=== PATIENT | female | born 1945 | race Caucasian/White ===

== ENCOUNTER 2019-05-05 19:34 | Emergency (ER) | payer OTHER ==
--- OUTSIDE RECORDS SUMMARY | 2019-05-05 19:38 | XMS REPORT | Continuity of Care Document ---
:1945 Author Organization [facility] Care Team Providers Name Role Phone [facility] Unavailable Unavailable Problems Problem Status Onset Classification Date Comments Source Date Reported Discharge 05/14/20 05/16/2018 [facility] Diagnosis: 18 Personal history of colonic polyps Nausea with 05/06/20 11/18/2018 [facility] vomiting, 18 [place] unspecified Asthma Active Problem 05/16/2018 [facility] Cholesterol Active Problem 05/16/2018 [facility] Diabetes Active Problem 05/16/2018 TYPE II [facility] mellitus1 Insulin dependent Heart murmur2 Active Problem 05/16/2018 no problems [facility] Hypertension Active Problem 05/16/2018 [facility] Hypothyroid Active Problem 05/16/2018 [facility] Polyp colon Resolved Problem 05/16/2018 [facility] Medications Medication Details Route Status Patient Ordering Order Source Instructions Provider Date Optiray 300 100 mL, Inactive [facility] Injection, IV 018 Push, Once, first dose 05/14/18 12:00:00 CDT, stop date 05/14/18 12:00:00 CDT barium sulfate 450 mL, Susp, Inactive [facility] 2% oral Oral, Once, 018 suspension first dose 05/14/18 12:00:00 CDT, stop date 05/14/18 12:00:00 CDT Saline Lock 10 mL, Soln, Inactive [facility] Flush IV Push, As 018 Indicated PRN for flush, first dose 05/14/18 11:34:00 CDT LR 1,000 mL 1,000 mL, IV, Inactive [facility] 75 mL/hr, 018 start date 05/14/18 9:50:00 CDT Saline Lock 10 mL, Soln, Inactive [facility] Flush IV Push, As 018 Indicated PRN for flush, first dose 05/14/18 9:50:00 CDT Misc Medication 500 mL, Inactive [facility] Soln-IV, IV, 018 Once, first dose 05/14/18 9:46:00 CDT, stop date 05/14/18 9:46:00 CDT propofol 100 mg=10 mL, Inactive [facility] Emulsion, IV, 018 Once, first dose 05/14/18 9:39:00 CDT, stop date 05/14/18 9:39:00 CDT propofol 200 mg=20 mL, Inactive [facility] Emulsion, IV, 018 Once, first dose 05/14/18 9:24:00 CDT, stop date 05/14/18 9:24:00 CDT Lidocaine 2% 0.2 mL, Inactive [facility] 0.2 mL IV Start Injection, 018 [[place]] Subcutaneous, Once PRN for other (see comment), first dose 05/14/18 7:35:00 CDT LR 1,000 mL 1,000 mL, IV, Inactive [facility] 30 mL/hr, 018 start date 05/14/18 7:35:00 CDT Albuterol 0.83 mg mL, NEB, Active [facility] MG/ML Inhalant q6hr, 0 018 Solution Refill(s) Levothyroxine 100 mcg=1 Active [facility] Sodium 0.1 MG tabs, Oral, 018 Oral Tablet Daily, 0 [Levothroid] Refill(s), thyroid losartan 100 mg mg tabs, Oral, Active [facility] oral tablet Daily, 0 018 Refill(s), HTN Humulin N See Active [facility] Instructions, 018 Subcutaneous 10 units in AM, 0 Refill(s), DM Insulin Lispro Subcutaneous, Active [facility] 100 UNT/ML 0 Refill(s), 018 Injectable DM Solution [Humalog] atorvastatin 40 40 mg=1 tabs, Active [facility] mg oral tablet Oral, Daily, 0 018 Refill(s), cholesterol aspirin 81 mg =1 caps, Oral, Active [facility] oral delayed Daily, # 120 018 release capsule caps, 0 Refill(s), supplement carvedilol 25 25 mg=1 tabs, Active [facility] MG Oral Tablet Oral, BID, 0 018 Refill(s), HTN amLODIPine 5 mg mg tabs, Oral, Active [facility] oral tablet Daily, 0 018 Refill(s), HTN Allergies, Adverse Reactions, Alerts No Known Medication Allergies Immunizations No Data Provided for This Section Results Order Name Results Value Reference Date Interpretation Comments Source Range LABORATORY Calculate 106 59 - 120 05/14/ [facility] GFR 2018 LABORATORY Blood 177 74 - 106 05/14/ [facility] Glucose, 2018 Capillary LABORATORY Blood 246 74 - 106 05/14/ [facility] Glucose, 2018 Capillary Pathology Reports No Data Provided for This Section Diagnostic Reports Report Value Date Source Gallbladder scan HIDA w HIDA scan with gallbladder ejection fraction, 201705/01/2018 [place] [facility] [place] HISTORY: Nausea and vomiting. TECHNIQUE: HIDA scan was performed following the intravenous injection of 5.5 mCi of technetium labeled Choletec. Gallbladder ejection fraction was calculated following the intravenous injection of 1.0 cc of Kinevac. FINDINGS: The images of the liver demonstrate no abnormality with prompt emptying into gallbladder, bile ducts, and small bowel. The gallbladder ejection fraction equals 70% with no reproduction of the patient's abdominal pain. IMPRESSION: Normal HIDA scan. Normal gallbladder ejection fraction with no reproduction of the patient's abdominal pain. Consultation Notes No Data Provided for This Section Discharge Summaries No Data Provided for This Section History and Physicals No Data Provided for This Section Vital Signs Vital Sign Value Date Comments Source Systolic (mm Hg) 130 05/14/2018 [facility] Diastolic (mm Hg) 78 05/14/2018 [facility] Respitory Rate 13 05/14/2018 [facility] Peripheral Pulse Rate 64 05/14/2018 [facility] Heart Rate 62 05/14/2018 [facility] Systolic (mm Hg) 144 05/14/2018 [facility] Diastolic (mm Hg) 73 05/14/2018 [facility] Respitory Rate 12 05/14/2018 [facility] Respitory Rate 13 05/14/2018 [facility] Heart Rate 67 05/14/2018 [facility] Systolic (mm Hg) 146 05/14/2018 [facility] Diastolic (mm Hg) 76 05/14/2018 [facility] Temperature Oral (F) 36.8 [place] 05/14/2018 [facility] Heart Rate 77 05/14/2018 [facility] Height 157.48 cm 05/14/2018 [facility] Peripheral Pulse Rate 61 05/14/2018 [facility] Temperature Oral (F) 36.5 [place] 05/14/2018 [facility] Weight Measured 49 05/14/2018 [facility] Weight Measured 48.98 05/11/2018 [facility] Height 157.48 cm 05/11/2018 [facility] Encounters Location Location Encounter Encounter Reason Attending ADM DC Status Source Details Type Number For Provider Date Date Visit [facility] Outpatient [id number] Francisco J 05/01 05/02 Yudi Wharotn /2017 [facility] Outpatient [id number] Kumarlis 05/14 05/14 Active [facility] /2017 [facility] Outpatient [id number] Kumarlis 05/14 05/14 [facility]nyman [place] Procedures Procedure Code Date Perfomer Comments Source COLONOSCOPY 05/14/2018 auto-populated [facility] FLEXIBLE; WITH from documented BIOPSY; SINGLE OR surgical case MULTIPLE 21424 (Other)<sup>1</sup> Colonoscopy [id number] 08/28/2014 [facility] colon 08/28/2005 due to [facility] resection<sup>2</choi pre-cancer polyp p> ankle surgery [facility] Hernia repair [id number] [facility] Tonsillectomy [id number] [facility] Tubal ligation [id number] [facility] Assessment and Plan No Data Provided for This Section Plan of Care No Data Provided for This Section Social History Social History Date Source Social History TypeResponse 05/11/2018 [facility] Smoking Status Current every day smoker; Type: Cigarettes; Tobacco use per day: 20; No data available for this 05/02/2018 [facility] section Family History No Data Provided for This Section Advance Directives No Data Provided for This Section Functional Status No Data Provided for This Section
--- OUTSIDE RECORDS SUMMARY | 2019-05-05 19:38 | XMS REPORT | Clinical Summary ---
:1945 Author Organization [facility] Address [address] [place] [address] Care Team Providers Name Role Phone Marcos Cage MD Primary Care Provider Allergies No Known Allergies Medications Medication Sig Dispensed Refills Start End Date Status Date albuterol (PROAIR Inhale 2 puffs 0 Active HFA,PROVENTIL every 6 (six) HFA,VENTOLIN HFA) hours as needed 90 mcg/actuation for wheezing. inhaler brimonidine Administer 1 0 Active (ALPHAGAN P) 0.1 % drop to both drops eyes 2 (two) times a day. amLODIPine Take 5 mg by 0 Active (NORVASC) 5 mg mouth daily. tablet aspirin (ECOTRIN) Take 81 mg by 0 Active 81 MG enteric mouth daily. coated tablet atorvastatin Take 40 mg by 0 Active (LIPITOR) 40 MG mouth daily. tablet carvedilol (COREG) Take 25 mg by 0 Active 25 MG tablet mouth 2 (two) times a day with meals. folic Take by mouth. 0 Active acid/multivit-min/ lutein (CENTRUM SILVER ORAL) yjdfbo-tgrvoadn-zs Take 1 capsule 0 Active ylase (CREON) by mouth 3 36,000-114,000- (three) times a 180,000 unit day with meals. capsule,delayed release(DR/EC) levothyroxine Take 100 mcg by 0 Active (SYNTHROID, mouth daily. LEVOXYL) 100 mcg tablet guaiFENesin Take 1,200 mg 0 Active (MUCINEX) 600 mg by mouth as tablet extended needed. release 12hr travoprost 1 drop nightly. 0 Active (TRAVATAN-Z) 0.004 % cholecalciferol, Take 1 tablet 0 Active vitamin D3, by mouth. (VITAMIN D3) 5,000 unit tablet insulin lispro Inject 0-5 10 mL 1 08/19/201 08/18/20 Active (HumaLOG) 100 Units under the 9 20 unit/mL injection skin 3 (three) times a day with meals. erythromycin base Take 1 tablet 120 tablet 0 05/15/20 Active (E-MYCIN) 250 MG (250 mg total) 9 19 tablet by mouth 4 (four) times a day with meals and nightly for 30 days. insulin GLARGINE Inject 15 Units 10 mL 1 04/15/20 Active (LANTUS) 100 under the skin 9 20 unit/mL injection daily before (vial) breakfast. multivitamin Take 1 tablet 30 tablet 0 Active (THERAGRAN) tablet by mouth daily. 9 insulin NPH Inject 24 Units 0 04/15/20 Discontinued (HumuLIN-N) 100 under the skin 19 (Stop Taking at unit/mL injection daily before Discharge) breakfast. insulin lispro Inject 3-14 0 04/15/20 Discontinued (HumaLOG) 100 Units under the 19 (Stop Taking at unit/mL injection skin 3 (three) Discharge) times a day before meals. loperamide Take 2 mg by 0 04/15/20 Discontinued (IMODIUM) 2 mg mouth as needed 19 (Stop Taking at capsule for diarrhea. Discharge) losartan (COZAAR) Take 100 mg by 0 04/15/20 Discontinued 100 MG tablet mouth daily. 19 (Stop Taking at Discharge) HYDROcodone-acetam Take 1 tablet 0 04/15/20 Discontinued inophen (NORCO) by mouth every 19 (Stop Taking at 10-325 mg per 8 (eight) hours Discharge) tablet as needed for moderate pain. gabapentin Take 1 capsule 42 capsule 0 04/29/20 (NEURONTIN) 300 mg (300 mg total) 9 19 capsule by mouth 3 (three) times a day for 14 days. methocarbamol Take 1 tablet 30 tablet 0 04/29/20 (ROBAXIN) 500 MG (500 mg total) 9 19 tablet by mouth 3 (three) times a day as needed for muscle spasms for up to 14 days. traMADol (ULTRAM) Take 1 tablet 30 tablet 0 04/29/20 50 mg tablet (50 mg total) 9 by mouth every 6 (six) hours for 14 days. 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 Overview: Added automatically from request for surgery [id number] Encounters Date Type Specialty Care Team Description 04/16/2019 Patient Outreach Quality Billy Dodge 04/02/2019 Surgery General Surgery Abbe NevilleIPPJUAN F PROCEDURE WITH MD Franca CHOLECYSTECTOMY 04/02/2019 Anesthesia Event General Surgery Abner Malin MD Crawley, Teri, NP 04/01/2019 Surgery Gastroenterology Elizabeth Hastings, UPPER GI TRACT, ENDOSCOPIC with biopsies/FNA 04/01/2019 Anesthesia Event Gastroenterology Mariel Anguiano MD Dhother, Ronaldo Thaukr MD 03/29/2019 [facility] [place], Diabetes mellitus of other type with complication, unspecified whether [facility] insulin use (HCC) ( Primary Dx); - Encounter Transaminitis; 04/15/2019 Dane Roy RUQ pain; MD Essence Hyponatremia; Urvashi Ambriz, Alcohol-induced chronic pancreatitis (HCC); Pancreatic mass; Essence Seaman Essential hypertension; MD Dane Type 2 diabetes mellitus with complication, with long-term current use of insulin (HCC) Abbe Neville MD after 05/04/2018 Family History Medical History Relation Name Comments Diabetes Father Heart disease Father Breast cancer Mother Heart disease Mother Relation Name Status Comments Father Mother Social History Tobacco Use Types Packs/Day Years Used Date Current Every Day Smoker 1 58 Smokeless Tobacco: Never Used Alcohol Use Drinks/Week oz/Week Comments Not Currently Alcohol Habits Answer Date Recorded How often do you have a drink containing alcohol? Not asked How many drinks containing alcohol do you have on a typical 3 or 4 03/30/2019 day when you are drinking? How often do you have six or more drinks on one occasion? Not asked Sex Assigned at Date Recorded Not on file Job Start Date Occupation Industry Not on file Not on file Not on file Travel History Travel Start Travel End No recent travel history available. Last Filed Vital Signs Vital Sign Reading Time Taken Comments Blood Pressure 142/71 04/15/2019 8:05 AM CDT Pulse 90 04/15/2019 9:16 AM CDT Temperature 36 C (96.8 F) 04/15/2019 8:05 AM CDT Respiratory Rate 17 04/15/2019 9:16 AM CDT Oxygen Saturation 93% 04/15/2019 9:10 AM CDT Inhaled Oxygen Concentration - - Weight 48.6 kg (107 lb 2.3 oz) 03/29/2019 4:35 PM CDT Height 160 cm (5' 3") 03/29/2019 10:18 AM CDT Body Mass Index 18.98 03/29/2019 10:18 AM CDT Plan of Treatment Date Type Specialty Care Team Description 05/13/2019 Office Visit General Surgery Abbe Neville MD [address] [address] Health Maintenance Due Date Last Done Comments DIABETIC RETINAL EYE EXAM 1945 DIABETIC FOOT EXAM 1957 URINE MICROALBUMIN 1957 BREAST CANCER SCREENING 1997 COLONOSCOPY SCREENING 1997 SHINGLES VACCINES (#1) 1997 65+ PNEUMOCOCCAL VACCINE (1 of 2 - PCV13) 2012 INFLUENZA VACCINE 03/28/2019 Implants Implanted Type Area 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 Device Shelf Model / Identifier Expiration Serial / Date Lot Clip Ligtng Weck Hemoclip Plus W/ Tape Ti Med - [id number] Medical N/A: N/A TELE[employer]LEX [employer] 11/20/2023 [id number] / Implanted: Qty: 1 on 04/02/2019 by Abbe Neville MD at [facility] Clips for / Internal Use Clip Ligtng Weck Hemoclip Plus W/ Tape Ti Lg - [id number] Medical N/A: N/A TELEFLEX MEDICAL 04/17/2023 [id number] / Implanted: Qty: 1 on 04/02/2019 by Abbe Neville MD at [facility] Clips for / Internal Use Clip Ligtng Weck Hemoclip Plus W/ Tape Ti Med Lg - [id number] Medical N/A: N/ A WECK CLOSURE 11/13/2023 [id number] / Implanted: Qty: 1 on 04/02/2019 by Abbe Neville MD at [facility] for SYSTEMS / Internal Use Procedures Procedure Name Priority Date/Time Associated Comments Diagnosis POC GLUCOSE Routine 04/15/2019 8:02 Results for this AM CDT procedure are in the results section. HC COMPLETE BLD COUNT Routine 04/15/2019 5:50 Results for this W/AUTO DIFF AM CDT procedure are in the results section. ESTIMATED GFR Routine 04/15/2019 4:00 Results for this AM CDT procedure are in the results section. PHOSPHORUS LEVEL Routine 04/15/2019 4:00 Results for this AM CDT procedure are in the results section. MAGNESIUM LEVEL Routine 04/15/2019 4:00 Results for this AM CDT procedure are in the results section. ALBUMIN LEVEL Routine 04/15/2019 4:00 Results for this AM CDT procedure are in the results section. PREALBUMIN LEVEL Routine 04/15/2019 4:00 Results for this AM CDT procedure are in the results section. BASIC METABOLIC PANEL Routine 04/15/2019 4:00 Results for this AM CDT procedure are in the results section. POC GLUCOSE Routine 04/14/2019 10:09 Results for this PM CDT procedure are in the results section. POC GLUCOSE Routine 04/14/2019 5:54 Results for this PM CDT procedure are in the results section. POC GLUCOSE Routine 04/14/2019 12:59 Results for this PM CDT procedure are in the results section. POC GLUCOSE Routine 04/14/2019 9:59 Results for this AM CDT procedure are in the results section. POC GLUCOSE Routine 04/14/2019 7:31 Results for this AM CDT procedure are in the results section. ESTIMATED GFR Routine 04/14/2019 4:00 Results for this AM CDT procedure are in the results section. PHOSPHORUS LEVEL Routine 04/14/2019 4:00 Results for this AM CDT procedure are in the results section. MAGNESIUM LEVEL Routine 04/14/2019 4:00 Results for this AM CDT procedure are in the results section. BASIC METABOLIC PANEL Routine 04/14/2019 4:00 Results for this AM CDT procedure are in the results section. HC COMPLETE BLD COUNT Routine 04/14/2019 3:30 Results for this W/AUTO DIFF AM CDT procedure are in the results section. POC GLUCOSE Routine 04/13/2019 4:15 Results for this PM CDT procedure are in the results section. POC GLUCOSE Routine 04/13/2019 12:26 Results for this PM CDT procedure are in the results section. CT CHEST W CONTRAST STAT 04/13/2019 12:08 Results for this PM CDT procedure are in the results section. POC GLUCOSE Routine 04/13/2019 7:39 Results for this AM CDT procedure are in the results section. ESTIMATED GFR Routine 04/13/2019 4:22 Results for this AM CDT procedure are in the results section. PHOSPHORUS LEVEL Routine 04/13/2019 4:22 Results for this AM CDT procedure are in the results section. MAGNESIUM LEVEL Routine 04/13/2019 4:22 Results for this AM CDT procedure are in the results section. BASIC METABOLIC PANEL Routine 04/13/2019 4:22 Results for this AM CDT procedure are in the results section. HC COMPLETE BLD COUNT Routine 04/13/2019 4:22 Results for this W/AUTO DIFF AM CDT procedure are in the results section. POC GLUCOSE Routine 04/12/2019 8:13 Results for this PM CDT procedure are in the results section. POC GLUCOSE Routine 04/12/2019 4:56 Results for this PM CDT procedure are in the results section. POC GLUCOSE Routine 04/12/2019 11:57 Results for this AM CDT procedure are in the results section. ESTIMATED GFR Routine 04/12/2019 9:48 Results for this AM CDT procedure are in the results section. BASIC METABOLIC PANEL Routine 04/12/2019 9:48 Results for this AM CDT procedure are in the results section. OSMOLALITY, SERUM Routine 04/12/2019 9:37 Results for this AM CDT procedure are in the results section. OSMOLALITY, URINE Routine 04/12/2019 9:37 Results for this AM CDT procedure are in the results section. SODIUM LEVEL, URINE, Routine 04/12/2019 9:37 Results for this RANDOM AM CDT procedure are in the results section. CREATININE LEVEL, URINE, Routine 04/12/2019 9:37 Results for this RANDOM AM CDT procedure are in the results section. POC GLUCOSE Routine 04/12/2019 6:31 Results for this AM CDT procedure are in the results section. ESTIMATED GFR Routine 04/12/2019 4:42 Results for this AM CDT procedure are in the results section. PHOSPHORUS LEVEL Routine 04/12/2019 4:42 Results for this AM CDT procedure are in the results section. MAGNESIUM LEVEL Routine 04/12/2019 4:42 Results for this AM CDT procedure are in the results section. BASIC METABOLIC PANEL Routine 04/12/2019 4:42 Results for this AM CDT procedure are in the results section. HC COMPLETE BLD COUNT Routine 04/12/2019 4:42 Results for this W/AUTO DIFF AM CDT procedure are in the results section. POC GLUCOSE Routine 04/11/2019 4:51 Results for this PM CDT procedure are in the results section. POC GLUCOSE Routine 04/11/2019 11:32 Results for this AM CDT procedure are in the results section. POC GLUCOSE Routine 04/11/2019 7:48 Results for this AM CDT procedure are in the results section. ESTIMATED GFR STAT 04/11/2019 5:45 Results for this AM CDT procedure are in the results section. PHOSPHORUS LEVEL STAT 04/11/2019 5:45 Results for this AM CDT procedure are in the results section. MAGNESIUM LEVEL STAT 04/11/2019 5:45 Results for this AM CDT procedure are in the results section. HC COMPLETE BLD COUNT STAT 04/11/2019 5:45 Results for this W/AUTO DIFF AM CDT procedure are in the results section. BASIC METABOLIC PANEL STAT 04/11/2019 5:45 Results for this AM CDT procedure are in the results section. POC GLUCOSE Routine 04/10/2019 9:57 Results for this PM CDT procedure are in the results section. POC GLUCOSE Routine 04/10/2019 6:16 Results for this PM CDT procedure are in the results section. POC GLUCOSE Routine 04/10/2019 12:55 Results for this PM CDT procedure are in the results section. POC GLUCOSE Routine 04/10/2019 11:32 Results for this AM CDT procedure are in the results section. POC GLUCOSE Routine 04/10/2019 8:09 Results for this AM CDT procedure are in the results section. ESTIMATED GFR Routine 04/10/2019 4:40 Results for this AM CDT procedure are in the results section. PHOSPHORUS LEVEL Routine 04/10/2019 4:40 Results for this AM CDT procedure are in the results section. MAGNESIUM LEVEL Routine 04/10/2019 4:40 Results for this AM CDT procedure are in the results section. BASIC METABOLIC PANEL Routine 04/10/2019 4:40 Results for this AM CDT procedure are in the results section. HC COMPLETE BLD COUNT Routine 04/10/2019 4:40 Results for this W/AUTO DIFF AM CDT procedure are in the results section. POC GLUCOSE Routine 04/10/2019 4:31 Results for this AM CDT procedure are in the results section. POC GLUCOSE Routine 04/09/2019 10:48 Results for this PM CDT procedure are in the results section. POC GLUCOSE Routine 04/09/2019 8:17 Results for this PM CDT procedure are in the results section. POC GLUCOSE Routine 04/09/2019 5:51 Results for this PM CDT procedure are in the results section. POC GLUCOSE Routine 04/09/2019 3:39 Results for this PM CDT procedure are in the results section. AMYLASE LEVEL, MISC STAT 04/09/2019 2:48 Results for this FLUID PM CDT procedure are in the results section. POC GLUCOSE Routine 04/09/2019 1:06 Results for this PM CDT procedure are in the results section. POC GLUCOSE Routine 04/09/2019 12:23 Results for this PM CDT procedure are in the results section. POC GLUCOSE Routine 04/09/2019 11:13 Results for this AM CDT procedure are in the results section. POC GLUCOSE Routine 04/09/2019 9:20 Results for this AM CDT procedure are in the results section. POC GLUCOSE Routine 04/09/2019 8:07 Results for this AM CDT procedure are in the results section. POC GLUCOSE Routine 04/09/2019 6:52 Results for this AM CDT procedure are in the results section. POC GLUCOSE Routine 04/09/2019 5:09 Results for this AM CDT procedure are in the results section. POC GLUCOSE Routine 04/09/2019 4:02 Results for this AM CDT procedure are in the results section. POC GLUCOSE Routine 04/09/2019 2:53 Results for this AM CDT procedure are in the results section. POC GLUCOSE Routine 04/09/2019 1:59 Results for this AM CDT procedure are in the results section. POC GLUCOSE Routine 04/09/2019 1:04 Results for this AM CDT procedure are in the results section. ESTIMATED GFR Routine 04/09/2019 12:35 Results for this AM CDT procedure are in the results section. PARTIAL THROMBOPLASTIN Routine 04/09/2019 12:35 Results for this TIME (PTT) AM CDT procedure are in the results section. PROTHROMBIN TIME WITH Routine 04/09/2019 12:35 Results for this INR AM CDT procedure are in the results section. PHOSPHORUS LEVEL Routine 04/09/2019 12:35 Results for this AM CDT procedure are in the results section. MAGNESIUM LEVEL Routine 04/09/2019 12:35 Results for this AM CDT procedure are in the results section. HEPATIC FUNCTION PANEL Routine 04/09/2019 12:35 Results for this AM CDT procedure are in the results section. IONIZED CALCIUM Routine 04/09/2019 12:35 Results for this AM CDT procedure are in the results section. HC COMPLETE BLD COUNT Routine 04/09/2019 12:35 Results for this W/AUTO DIFF AM CDT procedure are in the results section. BASIC METABOLIC PANEL Routine 04/09/2019 12:35 Results for this AM CDT procedure are in the results section. POC GLUCOSE Routine 04/08/2019 11:06 Results for this PM CDT procedure are in the results section. POC GLUCOSE Routine 04/08/2019 10:02 Results for this PM CDT procedure are in the results section. POC GLUCOSE Routine 04/08/2019 9:25 Results for this PM CDT procedure are in the results section. POC GLUCOSE Routine 04/08/2019 8:16 Results for this PM CDT procedure are in the results section. ECG 12-LEAD STAT 04/08/2019 5:11 Results for this PM CDT procedure are in the results section. ESTIMATED GFR STAT 04/08/2019 4:32 Results for this PM CDT procedure are in the results section. HEMOGLOBIN A1C STAT 04/08/2019 4:32 Results for this PM CDT procedure are in the results section. DKA ELECTROLYTES AND STAT 04/08/2019 4:32 Results for this GLUCOSE TEST PM CDT procedure are in the results section. PHOSPHORUS LEVEL STAT 04/08/2019 4:32 Results for this PM CDT procedure are in the results section. MAGNESIUM LEVEL STAT 04/08/2019 4:32 Results for this PM CDT procedure are in the results section. COMPREHENSIVE METABOLIC STAT 04/08/2019 4:32 Results for this PANEL PM CDT procedure are in the results section. VENOUS BLOOD GAS STAT 04/08/2019 4:32 Results for this PM CDT procedure are in the results section. POC GLUCOSE Routine 04/08/2019 3:34 Results for this PM CDT procedure are in the results section. POC GLUCOSE Routine 04/08/2019 2:31 Results for this PM CDT procedure are in the results section. ESTIMATED GFR Routine 04/08/2019 12:40 Results for this PM CDT procedure are in the results section. IONIZED CALCIUM Routine 04/08/2019 12:40 Results for this PM CDT procedure are in the results section. PHOSPHORUS LEVEL Routine 04/08/2019 12:40 Results for this PM CDT procedure are in the results section. MAGNESIUM LEVEL Routine 04/08/2019 12:40 Results for this PM CDT procedure are in the results section. BASIC METABOLIC PANEL Routine 04/08/2019 12:40 Results for this PM CDT procedure are in the results section. POC GLUCOSE Routine 04/08/2019 11:42 Results for this AM CDT procedure are in the results section. POC GLUCOSE Routine 04/08/2019 7:51 Results for this AM CDT procedure are in the results section. POC GLUCOSE Routine 04/08/2019 4:35 Results for this AM CDT procedure are in the results section. POC GLUCOSE Routine 04/08/2019 2:51 Results for this AM CDT procedure are in the results section. PARTIAL THROMBOPLASTIN Routine 04/08/2019 2:45 Results for this TIME (PTT) AM CDT procedure are in the results section. PROTHROMBIN TIME WITH Routine 04/08/2019 2:45 Results for this INR AM CDT procedure are in the results section. HC COMPLETE BLD COUNT Routine 04/08/2019 2:45 Results for this W/AUTO DIFF AM CDT procedure are in the results section. BLOOD CULTURE, AEROBIC & Routine 04/08/2019 2:45 Results for this ANAEROBIC AM CDT procedure are in the results section. BLOOD CULTURE, AEROBIC & Routine 04/08/2019 2:40 Results for this ANAEROBIC AM CDT procedure are in the results section. ESTIMATED GFR Routine 04/08/2019 2:01 Results for this AM CDT procedure are in the results section. LIPASE LEVEL Routine 04/08/2019 2:01 Results for this AM CDT procedure are in the results section. HEPATIC FUNCTION PANEL Routine 04/08/2019 2:01 Results for this AM CDT procedure are in the results section. LACTIC ACID LEVEL Routine 04/08/2019 2:01 Results for this AM CDT procedure are in the results section. IONIZED CALCIUM Routine 04/08/2019 2:01 Results for this AM CDT procedure are in the results section. PHOSPHORUS LEVEL Routine 04/08/2019 2:01 Results for this AM CDT procedure are in the results section. MAGNESIUM LEVEL Routine 04/08/2019 2:01 Results for this AM CDT procedure are in the results section. BASIC METABOLIC PANEL Routine 04/08/2019 2:01 Results for this AM CDT procedure are in the results section. POC GLUCOSE Routine 04/07/2019 11:36 Results for this PM CDT procedure are in the results section. VENOUS BLOOD GAS STAT 04/07/2019 10:40 Results for this PM CDT procedure are in the results section. ESTIMATED GFR STAT 04/07/2019 9:18 Results for this PM CDT procedure are in the results section. COMPREHENSIVE METABOLIC STAT 04/07/2019 9:18 Results for this PANEL PM CDT procedure are in the results section. LACTIC ACID LEVEL STAT 04/07/2019 9:17 Results for this PM CDT procedure are in the results section. BETA HYDROXYBUTYRATE STAT 04/07/2019 9:17 Results for this PM CDT procedure are in the results section. POTASSIUM LEVEL Routine 04/07/2019 9:00 Results for this PM CDT procedure are in the results section. POC GLUCOSE Routine 04/07/2019 7:28 Results for this PM CDT procedure are in the results section. POC GLUCOSE Routine 04/07/2019 3:40 Results for this PM CDT procedure are in the results section. POC GLUCOSE Routine 04/07/2019 11:16 Results for this AM CDT procedure are in the results section. POC GLUCOSE Routine 04/07/2019 7:11 Results for this AM CDT procedure are in the results section. HC COMPLETE BLD COUNT Routine 04/07/2019 4:40 Results for this W/AUTO DIFF AM CDT procedure are in the results section. POC GLUCOSE Routine 04/07/2019 4:19 Results for this AM CDT procedure are in the results section. ESTIMATED GFR Routine 04/07/2019 4:00 Results for this AM CDT procedure are in the results section. PHOSPHORUS LEVEL Routine 04/07/2019 4:00 Results for this AM CDT procedure are in the results section. MAGNESIUM LEVEL Routine 04/07/2019 4:00 Results for this AM CDT procedure are in the results section. BASIC METABOLIC PANEL Routine 04/07/2019 4:00 Results for this AM CDT procedure are in the results section. POC GLUCOSE Routine 04/06/2019 11:31 Results for this PM CDT procedure are in the results section. POC GLUCOSE Routine 04/06/2019 8:03 Results for this PM CDT procedure are in the results section. POC GLUCOSE Routine 04/06/2019 3:20 Results for this PM CDT procedure are in the results section. POC GLUCOSE Routine 04/06/2019 11:14 Results for this AM CDT procedure are in the results section. POC GLUCOSE Routine 04/06/2019 7:14 Results for this AM CDT procedure are in the results section. HC COMPLETE BLD COUNT Routine 04/06/2019 4:35 Results for this W/AUTO DIFF AM CDT procedure are in the results section. POC GLUCOSE Routine 04/06/2019 4:32 Results for this AM CDT procedure are in the results section. ESTIMATED GFR Routine 04/06/2019 4:00 Results for this AM CDT procedure are in the results section. PHOSPHORUS LEVEL Routine 04/06/2019 4:00 Results for this AM CDT procedure are in the results section. MAGNESIUM LEVEL Routine 04/06/2019 4:00 Results for this AM CDT procedure are in the results section. BASIC METABOLIC PANEL Routine 04/06/2019 4:00 Results for this AM CDT procedure are in the results section. POC GLUCOSE Routine 04/05/2019 11:17 Results for this PM CDT procedure are in the results section. POC GLUCOSE Routine 04/05/2019 7:45 Results for this PM CDT procedure are in the results section. POC GLUCOSE Routine 04/05/2019 3:39 Results for this PM CDT procedure are in the results section. HC COMPLETE BLD COUNT Timed 04/05/2019 1:15 Results for this W/AUTO DIFF PM CDT procedure are in the results section. POC GLUCOSE Routine 04/05/2019 11:48 Results for this AM CDT procedure are in the results section. XR CHEST 1 VW PORTABLE STAT 04/05/2019 10:42 Results for this AM CDT procedure are in the results section. POC GLUCOSE Routine 04/05/2019 7:32 Results for this AM CDT procedure are in the results section. MANUAL DIFFERENTIAL Routine 04/05/2019 6:35 Results for this AM CDT procedure are in the results section. ESTIMATED GFR Routine 04/05/2019 6:35 Results for this AM CDT procedure are in the results section. PHOSPHORUS LEVEL Routine 04/05/2019 6:35 Results for this AM CDT procedure are in the results section. MAGNESIUM LEVEL Routine 04/05/2019 6:35 Results for this AM CDT procedure are in the results section. BASIC METABOLIC PANEL Routine 04/05/2019 6:35 Results for this AM CDT procedure are in the results section. CBC WITH PLATELET AND Routine 04/05/2019 6:35 Results for this DIFFERENTIAL AM CDT procedure are in the results section. PREPARE RBC STAT 04/05/2019 1:45 Results for this AM CDT procedure are in the results section. TYPE AND SCREEN STAT 04/05/2019 1:45 Results for this AM CDT procedure are in the results section. MANUAL DIFFERENTIAL Routine 04/04/2019 10:30 Results for this PM CDT procedure are in the results section. CBC WITH PLATELET AND Routine 04/04/2019 10:30 Results for this DIFFERENTIAL PM CDT procedure are in the results section. POC GLUCOSE Routine 04/04/2019 8:12 Results for this PM CDT procedure are in the results section. POC GLUCOSE Routine 04/04/2019 4:07 Results for this PM CDT procedure are in the results section. MANUAL DIFFERENTIAL STAT 04/04/2019 3:20 Results for this PM CDT procedure are in the results section. CBC WITH PLATELET AND STAT 04/04/2019 3:20 Results for this DIFFERENTIAL PM CDT procedure are in the results section. ECG 12-LEAD Routine 04/04/2019 2:57 Results for this PM CDT procedure are in the results section. POC GLUCOSE Routine 04/04/2019 12:55 Results for this PM CDT procedure are in the results section. AMYLASE LEVEL, MISC Routine 04/04/2019 9:00 Results for this FLUID AM CDT procedure are in the results section. POC GLUCOSE Routine 04/04/2019 8:13 Results for this AM CDT procedure are in the results section. XR CHEST 1 VW PORTABLE STAT 04/04/2019 7:57 Results for this AM CDT procedure are in the results section. HC COMPLETE BLD COUNT Routine 04/04/2019 6:45 Results for this W/AUTO DIFF AM CDT procedure are in the results section. PROTHROMBIN TIME WITH Routine 04/04/2019 4:15 Results for this INR AM CDT procedure are in the results section. PARTIAL THROMBOPLASTIN Routine 04/04/2019 4:15 Results for this TIME (PTT) AM CDT procedure are in the results section. ESTIMATED GFR Routine 04/04/2019 4:00 Results for this AM CDT procedure are in the results section. PHOSPHORUS LEVEL Routine 04/04/2019 4:00 Results for this AM CDT procedure are in the results section. MAGNESIUM LEVEL Routine 04/04/2019 4:00 Results for this AM CDT procedure are in the results section. LACTIC ACID LEVEL Routine 04/04/2019 4:00 Results for this AM CDT procedure are in the results section. IONIZED CALCIUM Routine 04/04/2019 4:00 Results for this AM CDT procedure are in the results section. HEPATIC FUNCTION PANEL Routine 04/04/2019 4:00 Results for this AM CDT procedure are in the results section. BASIC METABOLIC PANEL Routine 04/04/2019 4:00 Results for this AM CDT procedure are in the results section. POC GLUCOSE Routine 04/04/2019 3:51 Results for this AM CDT procedure are in the results section. POC GLUCOSE Routine 04/03/2019 11:37 Results for this PM CDT procedure are in the results section. POC GLUCOSE Routine 04/03/2019 7:34 Results for this PM CDT procedure are in the results section. POC GLUCOSE Routine 04/03/2019 3:28 Results for this PM CDT procedure are in the results section. POC GLUCOSE Routine 04/03/2019 11:46 Results for this AM CDT procedure are in the results section. POC GLUCOSE Routine 04/03/2019 7:31 Results for this AM CDT procedure are in the results section. XR CHEST 1 VW PORTABLE Routine 04/03/2019 7:06 Results for this AM CDT procedure are in the results section. POC GLUCOSE Routine 04/03/2019 4:39 Results for this AM CDT procedure are in the results section. ARTERIAL BLOOD GAS Routine 04/03/2019 1:30 Results for this AM CDT procedure are in the results section. PHOSPHORUS LEVEL Routine 04/03/2019 1:23 Results for this AM CDT procedure are in the results section. MAGNESIUM LEVEL Routine 04/03/2019 1:23 Results for this AM CDT procedure are in the results section. T4, FREE Routine 04/03/2019 1:23 Results for this AM CDT procedure are in the results section. ESTIMATED GFR Routine 04/03/2019 1:23 Results for this AM CDT procedure are in the results section. PROTHROMBIN TIME WITH Routine 04/03/2019 1:23 Results for this INR AM CDT procedure are in the results section. PARTIAL THROMBOPLASTIN Routine 04/03/2019 1:23 Results for this TIME (PTT) AM CDT procedure are in the results section. LACTIC ACID LEVEL Routine 04/03/2019 1:23 Results for this AM CDT procedure are in the results section. IONIZED CALCIUM Routine 04/03/2019 1:23 Results for this AM CDT procedure are in the results section. HEPATIC FUNCTION PANEL Routine 04/03/2019 1:23 Results for this AM CDT procedure are in the results section. HC COMPLETE BLD COUNT Routine 04/03/2019 1:23 Results for this W/AUTO DIFF AM CDT procedure are in the results section. BASIC METABOLIC PANEL Routine 04/03/2019 1:23 Results for this AM CDT procedure are in the results section. THYROID STIMULATING Routine 04/03/2019 1:23 Results for this HORMONE AM CDT procedure are in the results section. POC GLUCOSE Routine 04/03/2019 1:20 Results for this AM CDT procedure are in the results section. POC GLUCOSE Routine 04/02/2019 8:42 Results for this PM CDT procedure are in the results section. URINALYSIS SCREEN AND STAT 04/02/2019 6:55 Results for this MICROSCOPY, WITH REFLEX PM CDT procedure are in TO CULTURE the results section. URINE CULTURE STAT 04/02/2019 6:55 Results for this PM CDT procedure are in the results section. ECG 12-LEAD STAT 04/02/2019 6:53 Results for this PM CDT procedure are in the results section. PHOSPHORUS LEVEL STAT 04/02/2019 6:04 Results for this PM CDT procedure are in the results section. LACTIC ACID LEVEL STAT 04/02/2019 6:04 Results for this PM CDT procedure are in the results section. IONIZED CALCIUM STAT 04/02/2019 6:04 Results for this PM CDT procedure are in the results section. ESTIMATED GFR STAT 04/02/2019 6:04 Results for this PM CDT procedure are in the results section. PROTHROMBIN TIME WITH STAT 04/02/2019 6:04 Results for this INR PM CDT procedure are in the results section. MAGNESIUM LEVEL STAT 04/02/2019 6:04 Results for this PM CDT procedure are in the results section. HC COMPLETE BLD COUNT STAT 04/02/2019 6:04 Results for this W/AUTO DIFF PM CDT procedure are in the results section. BASIC METABOLIC PANEL STAT 04/02/2019 6:04 Results for this PM CDT procedure are in the results section. POC GLUCOSE Routine 04/02/2019 6:02 Results for this PM CDT procedure are in the results section. ESTIMATED GFR Routine 04/02/2019 11:23 Results for this AM CDT procedure are in the results section. PHOSPHORUS LEVEL Routine 04/02/2019 11:23 Results for this AM CDT procedure are in the results section. MAGNESIUM LEVEL Routine 04/02/2019 11:23 Results for this AM CDT procedure are in the results section. BASIC METABOLIC PANEL Routine 04/02/2019 11:23 Results for this AM CDT procedure are in the results section. HC COMPLETE BLD COUNT Routine 04/02/2019 11:23 Results for this W/AUTO DIFF AM CDT procedure are in the results section. XR CHEST 1 VW PORTABLE STAT 04/02/2019 11:00 Results for this AM CDT procedure are in the results section. POC GLUCOSE Routine 04/02/2019 10:38 Results for this AM CDT procedure are in the results section. SURGICAL PATHOLOGY Routine 04/02/2019 9:05 Results for this REQUEST AM CDT procedure are in the results section. OH AN ELECTIVE Routine 04/02/2019 8:23 ENDOTRACHEAL AIRWAY AM CDT Procedure Note - Sundar Corral CRNA - 04/02/2019 8:23 AM CDT Airway Date/Time: 04/02/2019 8:23 AM Performed by: Sundar Corral CRNA Authorized by: Abner Malin MD Location: OR Urgency: Elective Difficult Airway: No Resident/AGENT TELEGRAPHER/AA: Sundar Corral CRNA Performed by: resident/AGENT TELEGRAPHER/AA Preoxygenated with 100% O2: Yes C-spine Precautions Maintained Throughout: Yes Mask Ventilation: Easy mask Final Airway Type: Endotracheal airway Final Endotracheal Airway: ETT Cuffed: Yes Technique Used: Direct laryngoscopy Devices/Methods Used in Placement: Intubating stylet Insertion Site: Oral Blade Type: Jiménez Laryngoscope Blade/Videolaryngoscope Blade Size: 2 ETT Size (mm): 7.0 Cuff at minimum occlusion pressure: Yes Measured from: Lips ETT to Lips (cm): 21 Placement Verified by: CO2 detection, direct visualization and equal breath sounds Laryngoscopic view: Grade I - full view of glottis Rapid Sequence Induction (RSI): No Modified RSI: No Number of Attempts at Approach: 1 CENTRAL LINE Routine 04/02/2019 7:56 AM CDT Procedure Note - Abner Malin MD - 04/02/2019 7:56 AM CDT Central line Performed by: Abner Malin MD Authorized by: Abner Malin MD Patient Location: OR Start Time: 04/02/2019 7:49 AM End Time: 04/02/2019 7:54 AM Staff: Anesthesiologist: Abner Malin MD Performed by: Anesthesiologist Preprocedure:patient identified, site and side verified, risks and benefits discussed, procedure verified, surgical consent complete, patient position confirmed, monitors and equipment checked and pre-op evaluation complete MSBT: antiseptic used during central venous catheter insertion, all elements of maximal sterile barrier technique followed, hand hygiene performed prior to central venous catheter insertion, cap/gown used by other personnel during central venous catheter insertion, solutions labeled and all ports not used during insertion clamped Indications: Indications: Vascular access and central pressure monitoring Anesthesia: Anesthesia: General Procedure details: Patient position: Supine Catheter Type: Double lumen Catheter Size: 8 Fr Catheter Site: subclavian vein Catheter site laterality: Left Pre-procedure: Landmarks identified Ultrasound guidance used: No Ultrasound image saved: No Number of attempts: 1 Successful placement: Yes Guidewire removal: Guidewire removal is confirmed Guidewire removal witnessed by: Sundar Corral CRNA Post-procedure: Post-procedure: line sutured, sterile dressing applied per protocol and ports flushed with saline Post-procedure: Sterile caps on all hubs and blood cleaned with CHG Assessment: Blood return through all ports and free fluid flow Patient tolerance: Patient tolerated the procedure well with no immediate complications WHIPPLE PROCEDURE 04/02/2019 7:28 Pancreatic mass AM CDT ESTIMATED GFR Routine 04/02/2019 3:42 Results for this AM CDT procedure are in the results section. AMYLASE LEVEL Routine 04/02/2019 3:42 Results for this AM CDT procedure are in the results section. LIPASE LEVEL Routine 04/02/2019 3:42 Results for this AM CDT procedure are in the results section. MAGNESIUM LEVEL Routine 04/02/2019 3:42 Results for this AM CDT procedure are in the results section. PHOSPHORUS LEVEL Routine 04/02/2019 3:42 Results for this AM CDT procedure are in the results section. PROTHROMBIN TIME WITH Routine 04/02/2019 3:42 Results for this INR AM CDT procedure are in the results section. HEPATIC FUNCTION PANEL Routine 04/02/2019 3:42 Results for this AM CDT procedure are in the results section. HC COMPLETE BLD COUNT Routine 04/02/2019 3:42 Results for this W/AUTO DIFF AM CDT procedure are in the results section. BASIC METABOLIC PANEL Routine 04/02/2019 3:42 Results for this AM CDT procedure are in the results section. POC GLUCOSE Routine 04/01/2019 10:02 Results for this PM CDT procedure are in the results section. POC GLUCOSE Routine 04/01/2019 5:40 Results for this PM CDT procedure are in the results section. SURGICAL PATHOLOGY Routine 04/01/2019 3:35 Results for this REQUEST PM CDT procedure are in the results section. PREPARE RBC Routine 04/01/2019 2:52 Results for this PM CDT procedure are in the results section. PREPARE FRESH FROZEN Routine 04/01/2019 2:52 PLASMA PM CDT PREPARE RBC Routine 04/01/2019 2:52 Results for this PM CDT procedure are in the results section. TYPE AND SCREEN Routine 04/01/2019 2:52 Results for this PM CDT procedure are in the results section. POC GLUCOSE Routine 04/01/2019 12:54 Results for this PM CDT procedure are in the results section. ECHOCARDIOGRAM 2D STAT 04/01/2019 12:05 Results for this COMPLETE W MMODE PM CDT procedure are in SPECTRAL COLOR DOPPLER the results (08401) section. CYTOLOGY Routine 04/01/2019 11:48 Results for this (NON-GYNECOLOGICAL) AM CDT procedure are in REQUEST the results section. CYTOLOGY Routine 04/01/2019 11:48 Results for this (NON-GYNECOLOGICAL) AM CDT procedure are in REQUEST the results section. POC GLUCOSE Routine 04/01/2019 8:32 Results for this AM CDT procedure are in the results section. POC GLUCOSE Routine 04/01/2019 7:38 Results for this AM CDT procedure are in the results section. 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 ESTIMATED GFR Routine 04/01/2019 4:00 Results for this AM CDT procedure are in the results section. COMPREHENSIVE METABOLIC Routine 04/01/2019 4:00 Results for this PANEL AM CDT procedure are in the results section. HC COMPLETE BLD COUNT Routine 04/01/2019 3:27 Results for this W/AUTO DIFF AM CDT procedure are in the results section. POC GLUCOSE Routine 03/31/2019 8:55 Results for this PM CDT procedure are in the results section. POC GLUCOSE Routine 03/31/2019 5:13 Results for this PM CDT procedure are in the results section. POC GLUCOSE Routine 03/31/2019 12:27 Results for this PM CDT procedure are in the results section. CARCINOEMBRYONIC ANTIGEN Routine 03/31/2019 9:02 Results for this (CEA) AM CDT procedure are in the results section. POC GLUCOSE Routine 03/31/2019 7:36 Results for this AM CDT procedure are in the results section. OSMOLALITY, SERUM Routine 03/31/2019 4:43 Results for this AM CDT procedure are in the results section. HC COMPLETE BLD COUNT Routine 03/31/2019 4:43 Results for this W/AUTO DIFF AM CDT procedure are in the results section. URIC ACID LEVEL Routine 03/31/2019 4:00 Results for this AM CDT procedure are in the results section. ESTIMATED GFR Routine 03/31/2019 4:00 Results for this AM CDT procedure are in the results section. MAGNESIUM LEVEL Routine 03/31/2019 4:00 Results for this AM CDT procedure are in the results section. PHOSPHORUS LEVEL Routine 03/31/2019 4:00 Results for this AM CDT procedure are in the results section. COMPREHENSIVE METABOLIC Routine 03/31/2019 4:00 Results for this PANEL AM CDT procedure are in the results section. HC COMPLETE BLD COUNT STAT 03/30/2019 8:45 Results for this W/AUTO DIFF PM CDT procedure are in the results section. ESTIMATED GFR STAT 03/30/2019 8:14 Results for this PM CDT procedure are in the results section. COMPREHENSIVE METABOLIC STAT 03/30/2019 8:14 Results for this PANEL PM CDT procedure are in the results section. POC GLUCOSE Routine 03/30/2019 5:31 Results for this PM CDT procedure are in the results section. SODIUM LEVEL, URINE, Routine 03/30/2019 12:46 Results for this RANDOM PM CDT procedure are in the results section. OSMOLALITY, URINE Routine 03/30/2019 12:46 Results for this PM CDT procedure are in the results section. POC GLUCOSE Routine 03/30/2019 11:18 Results for this AM CDT procedure are in the results section. URINALYSIS SCREEN AND Routine 03/30/2019 8:25 Results for this MICROSCOPY, WITH REFLEX AM CDT procedure are in TO CULTURE the results section. URINE CULTURE Routine 03/30/2019 8:25 Results for this AM CDT procedure are in the results section. POC GLUCOSE Routine 03/30/2019 7:27 Results for this AM CDT procedure are in the results section. ECG 12-LEAD STAT 03/29/2019 10:41 Results for this PM CDT procedure are in the results section. TROPONIN Timed 03/29/2019 8:50 Results for this PM CDT procedure are in the results section. HEMOGLOBIN A1C Routine 03/29/2019 8:50 Results for this PM CDT procedure are in the results section. CT ABDOMEN PELVIS W STAT 03/29/2019 6:22 Results for this CONTRAST PM CDT procedure are in the results section. POC GLUCOSE Routine 03/29/2019 5:28 Results for this PM CDT procedure are in the results section. LACTIC ACID LEVEL, Timed 03/29/2019 5:13 Results for this SEPSIS - NOW AND REPEAT PM CDT procedure are in 2X EVERY 3 HOURS the results section. CANCER ANTIGEN 19-9 Routine 03/29/2019 3:37 Results for this PM CDT procedure are in the results section. US GALLBLADDER STAT 03/29/2019 12:35 Results for this PM CDT procedure are in the results section. ALCOHOL LEVEL, BLOOD STAT 03/29/2019 11:50 Results for this AM CDT procedure are in the results section. ESTIMATED GFR STAT 03/29/2019 11:50 Results for this AM CDT procedure are in the results section. B NATRIURETIC PEPTIDE STAT 03/29/2019 11:50 Results for this AM CDT procedure are in the results section. TROPONIN STAT 03/29/2019 11:50 Results for this AM CDT procedure are in the results section. LACTIC ACID LEVEL, STAT 03/29/2019 11:50 Results for this SEPSIS - NOW AND REPEAT AM CDT procedure are in 2X EVERY 3 HOURS the results section. LIPASE LEVEL STAT 03/29/2019 11:50 Results for this AM CDT procedure are in the results section. COMPREHENSIVE METABOLIC STAT 03/29/2019 11:50 Results for this PANEL AM CDT procedure are in the results section. PARTIAL THROMBOPLASTIN STAT 03/29/2019 11:50 Results for this TIME (PTT) AM CDT procedure are in the results section. PROTHROMBIN TIME WITH STAT 03/29/2019 11:50 Results for this INR AM CDT procedure are in the results section. HC COMPLETE BLD COUNT STAT 03/29/2019 11:50 Results for this W/AUTO DIFF AM CDT procedure are in the results section. ESTIMATED GFR Routine 03/29/2019 1:50 Results for this AM CDT procedure are in the results section. MAGNESIUM LEVEL Routine 03/29/2019 1:50 Results for this AM CDT procedure are in the results section. PHOSPHORUS LEVEL Routine 03/29/2019 1:50 Results for this AM CDT procedure are in the results section. HC COMPLETE BLD COUNT Routine 03/29/2019 1:50 Results for this W/AUTO DIFF AM CDT procedure are in the results section. COMPREHENSIVE METABOLIC Routine 03/29/2019 1:50 Results for this PANEL AM CDT procedure are in the results section. after 05/04/2018 Results POC glucose (04/15/2019 8:02 AM CDT)Only the most recent of93 resultswithin the time period is included. Pathologist [facility] POC glucose 240 (H) 65 - 99 mg/dL [facility] Comment: [facility] Notified RN Meter ID: [id number] Green Chainer: Rocky Ambriz Specimen Performing Organization Address City/State/Zipcode Phone Number [facility] DEPARTMENT OF PATHOLOGY AND [address] [place] [address] GENOMIC MEDICINE [address] [address] CBC with platelet and differential (04/15/2019 5:50 AM CDT)Only the most recent of24 resultswithin the time period is included. Pathologist [facility] WBC 9.93 4.50 - 11.00 [facility] RBC 3.30 (L) 4.20 - 5.50 [facility] m/uL HOSPITAL HGB 10.4 (L) 12.0 - 16.0 [facility] g/dL HOSPITAL HCT 31.1 (L) 37.0 - 47.0 % [facility] MCV 94.2 82.0 - 100.0 [facility] MCH 31.5 27.0 - 34.0 pg [facility] MCHC 33.4 31.0 - 37.0 [facility] g/dL HOSPITAL RDW - SD 56.9 (H) 37.0 - 55.0 fL [facility] MPV 10.3 8.8 - 13.2 fL [facility] Platelet count 559 (H) 150 - 400 k/uL [facility] Nucleated RBC 0.00 /100 WBC [facility] Neutrophils 61.1 39.0 - 69.0 % [facility] Lymphocytes 16.4 (L) 25.0 - 45.0 % [facility] Monocytes 15.6 (H) 0.0 - 10.0 % [facility] Eosinophils 4.9 0.0 - 5.0 % [facility] Basophils 1.0 0.0 - 1.0 % [facility] Immature granulocytes 1.0Comment: 0.0 - 1.0 % [facility] "[facility] granulocytes" (promyelocytes , myelocytes, metamyelocytes ) Specimen Blood Performing Organization Address City/State/Zipcode Phone Number [facility] DEPARTMENT OF PATHOLOGY AND [address] [place] [address] GENOMIC MEDICINE [address] [address] Estimated GFR (04/15/2019 4:00 AM CDT)Only the most recent of25 resultswithin the time period is included. Estimated GFR 78 mL/min/1.73 [facility] Comment: m2 HOSPITAL CatergoryUnitsInterpretation G1 >=90 Normal or high G2 60-89Mildly decreased [id number] to moderately decreased [id number] to severely decreased G4 15-29Severely decreased G5 <15Kidney failure The eGFR was calculated using the Chronic Kidney Disease Epidemiology Collaboration (CKD-EPI) equation. Interpretation is based on recommendations of the National Kidney Foundation-Kidney Disease Outcomes Quality Initiative (NKF-KDOQI) published in 2014. Specimen Plasma specimen Performing Organization Address City/[facility] Phone Number [facility] DEPARTMENT OF PATHOLOGY AND [address] [place] [id number] [place] [phone] Prealbumin level (04/15/2019 4:00 AM CDT) Prealbumin 20 16 - 32 mg/dL [facility] Specimen Serum Performing Organization Address [facility] Phone Number [facility] DEPARTMENT OF PATHOLOGY AND [address] [place] [phone] Phosphorus level (04/15/2019 4:00 AM CDT)Only the most recent of20 resultswithin the time period is included. Phosphorus 4.1 2.4 - 4.5 mg/dL [facility] Specimen Plasma specimen Performing Organization Address [facility] Phone Number [facility] DEPARTMENT OF PATHOLOGY AND [address] [place] [phone] Magnesium level (04/15/2019 4:00 AM CDT)Only the most recent of20 resultswithin the time period is included. Magnesium 1.8 1.6 - 2.4 mg/dL [facility] Specimen Plasma specimen Performing Organization Address [facility] Phone Number [facility] DEPARTMENT OF PATHOLOGY AND [address] [place] [phone] Albumin level (04/15/2019 4:00 AM CDT) Albumin 2.9 (L) 3.5 - 5.0 g/dL [facility] Specimen Plasma specimen Performing Organization Address [facility] Phone Number [facility] DEPARTMENT OF PATHOLOGY AND [address] [place] [phone] Basic metabolic panel (04/15/2019 4:00 AM CDT)Only the most recent of18 resultswithin the time period is included. Sodium 130 (L) 135 - 148 mEq/L [facility] Potassium 4.4 3.5 - 5.0 mEq/L [facility] Chloride 92 (L) 98 - 112 mEq/L [facility] CO2 25 24 - 31 mEq/L [facility] Anion gap 13@ANIO 7 - 15 mEq/L [facility] BUN 13 8 - 23 mg/dL [facility] Creatinine 0.76 0.50 - 0.90 mg/dL [facility] Glucose 241 (H) 65 - 99 mg/dL [facility] Calcium 9.2 8.8 - 10.2 mg/dL [facility] Specimen Plasma specimen Performing Organization Address City/State/Zipcode Phone Number [facility] DEPARTMENT OF PATHOLOGY AND [address] [place] [phone] GENOMIC MEDICINE [facility] [address] [place] [phone] Chest W Contrast (04/13/2019 12:08 PM CDT) Specimen Narrative Performed At EXAMINATION: [facility] CT CHEST W CONTRAST CLINICAL HISTORY: pain with breathing TECHNIQUE: Multiple axial images of the chest were obtained following intravenous administration of iodinated contrast. Sagittal and coronal computerized reformatted images were also obtained. CT imaging was performed with iterative reconstruction techniques and/or automated exposure control to reduce radiation dose. COMPARISON: To a chest x-ray from 04/05/2019 IMPRESSION: 1.There is no evidence of hilar or mediastinal lymphadenopathy present. Very small pericardial effusion is present. 2.Granulomatous calcifications are noted within the spleen and the left chest. 3.Small centrilobular nodules are present in the upper lobes, can consistent with respiratory bronchiolitis. 4.Moderate peribronchial thickening and mucous plugging is noted most marked in the right lower lobe, consistent with chronic bronchitis. Aspergillus should be assessed for. 5.No bony abnormality is appreciated. [facility]-[id number] Procedure Note Interface, Radiology Results Incoming - 04/13/2019 12:32 PM CDT EXAMINATION: CT CHEST W CONTRAST CLINICAL HISTORY: pain with breathing TECHNIQUE: Multiple axial images of the chest were obtained following intravenous administration of iodinated contrast. Sagittal and coronal computerized reformatted images were also obtained. CT imaging was performed with iterative reconstruction techniques and/or automated exposure control to reduce radiation dose. COMPARISON: To a chest x-ray from 04/05/2019 IMPRESSION: 1. There is no evidence of hilar or mediastinal lymphadenopathy present. Very small pericardial effusion is present. 2. Granulomatous calcifications are noted within the spleen and the left chest. 3. Small centrilobular nodules are present in the upper lobes, can consistent with respiratory bronchiolitis. 4. Moderate peribronchial thickening and mucous plugging is noted most marked in the right lower lobe, consistent with chronic bronchitis. Aspergillus should be assessed for. 5. No bony abnormality is appreciated. [facility]-[id number] Performing Organization Address City/[facility]/Zipcode Phone Number [address] [address] Sodium level, urine, random (04/12/2019 9:37 AM CDT)Only the most recent of2 resultswithin the time period is included. Sodium, urine, random 72 mEq/L [facility] Specimen Urine Performing Organization Address [facility] Phone Number [facility] DEPARTMENT OF PATHOLOGY AND [address] [place] [phone] [place] [address] Osmolality, urine (04/12/2019 9:37 AM CDT)Only the most recent of2 resultswithin the time period is included. Osmolality, urine 285 50 - 1,400 mOsm/kg [facility] Specimen Urine Performing Organization Address [facility] Phone Number [facility] DEPARTMENT OF PATHOLOGY AND [address] [place] [address] Creatinine level, urine, random (04/12/2019 9:37 AM CDT) Creatinine, urine, 33 mg/dL [facility] Specimen Urine Performing Organization Address [facility] Phone Number [facility] DEPARTMENT OF PATHOLOGY AND [address] [place] [phone] [address] Osmolality, serum (04/12/2019 9:37 AM CDT)Only the most recent of2 resultswithin the time period is included. Osmolality 280 275 - 295 mOsm/kg [facility] Specimen Blood Performing Organization Address [facility] Phone Number [facility] DEPARTMENT OF PATHOLOGY AND [address] [place] [phone] [place] [address] Amylase level, misc fluid (04/09/2019 2:48 PM CDT)Only the most recent of2 resultswithin the time period is included. Fluid type Peritoneal [facility] Amylase, fluid <3 U/L [facility] Comment: [facility] The reference interval(s) and other method performance specifications have not been established for this body fluid. The test results must be integrated into the clinical context for interpretation. Specimen Fluid Performing Organization Address City/[facility]/Zipcode Phone Number [facility] DEPARTMENT OF PATHOLOGY AND [address] [place] [phone] Partial thromboplastin time, activated (04/09/2019 12:35 AM CDT)Only the most recent of5 resultswithin the time period is included. [facility] [address] PTT 37.5 (H) 23.0 - 36.0 [facility] Comment: [facility] PTT therapeutic range for unfractionated heparin is 61.0-112.0 seconds which corresponds to Anti-Xa 0.3-0.7 U/ml. Specimen Blood Performing Organization Address City/[facility] Phone Number [facility] DEPARTMENT OF PATHOLOGY AND [address] [place] [address] Prothrombin time with INR (04/09/2019 12:35 AM CDT)Only the most recent of7 resultswithin the time period is included. [facility] [address] Prothrombin time 13.3 11.5 - 14.5 [facility] INR 1.0 [place] Comment: [facility] The International Normalized Ratio (INR) is a therapeutic HOSPITAL monitoring tool for patients who are stable on oral anticoagulant therapy. An INR of 2.0-3.0 is suggested for deep vein thrombosis/pulmonary embolism. Specimen Blood Performing Organization Address City/[facility]/Zipcode Phone Number [facility] DEPARTMENT OF PATHOLOGY AND [address] [place] [address] Ionized calcium (04/09/2019 12:35 AM CDT)Only the most recent of6 resultswithin the time period is included. Pathologist [facility] pH 7.46 [facility] Ionized calcium 1.10 (L) 1.11 - 1.32 [facility] mmol/L HOSPITAL Specimen Plasma specimen Performing Organization Address City/[facility]/Zipcode Phone Number [facility] DEPARTMENT OF PATHOLOGY AND [address] [place] [address] [address] Hepatic function panel (04/09/2019 12:35 AM CDT)Only the most recent of5 resultswithin the time period is included. [facility] [address] Albumin 2.1 (L) 3.5 - 5.0 g/dL [facility] Total bilirubin 0.5 0.0 - 1.2 [facility] mg/dL [facility] Bilirubin direct <0.2 0.0 - 0.3 [facility] mg/dL [facility] Alkaline phosphatase 99 35 - 104 U/L [facility] Protein 5.1 (L) 6.3 - 8.3 g/dL [facility] Comment: [facility]ITAL [place] 4.6-7.0 g/dL 1 week 4.4-7.6 g/dL 7 months-1year5.1-7.3 g/dL 1-2 years5.6-7.5 g/dL >3 years6.0-8.0 g/dL 18-150 6.3-8.3 g/dL ALT 20 5 - 50 U/L [facility] AST 18 10 - 35 U/L [facility] Specimen Plasma specimen Performing Organization Address City/[facility] Phone Number [facility] DEPARTMENT OF PATHOLOGY AND [address] [place] [address] [place] [phone] [place] [address] ECG 12 lead (04/08/2019 5:11 PM CDT)Only the most recent of4 resultswithin the time period is included. [facility] [address] Ventricular rate 77 [facility] Atrial rate 77 [facility] OH interval 144 [facility] QRSD interval 138 [facility] QT interval 416 [facility] QTC interval 470 [facility] P axis 1 74 [facility] QRS axis 1 92 [facility] T wave axis 55 [facility] EKG impression Normal sinus rhythm-Possible Left atrial enlargement-Right bundle branch block-Abnormal ECG-In automated comparison with ECG of 2018 14:57,-T wave inversion no longer evident in Inferior leads-El [facility] MUSE ectronically Signed By Demetrio Simpson MD ([id number]) on 04/09/2019 3:58:02 PM Specimen Narrative Performed At Performing Organization Address City/State/Zipcode Phone Number [facility] MUSE [address] [place] [address] DKA electrolytes and glucose test (04/08/2019 4:32 PM CDT) Sodium, whole 130 (L) 135 - 148 [facility] mEq/L [facility] Potassium, whole 2.9 (LL)Comment: 3.5 - 5.0 [facility] Specimen is not mEq/L HOSPITAL hemolyzed. Chloride, whole 98 98 - 112 mEq/L [facility] CO2 calculated, 27 24 - 31 mEq/L [facility] Anion gap, whole 5 5 - 20 mEq/L [facility] Glucose, whole 196 (H) 65 - 99 mg/dL [facility] Specimen Blood Performing Organization Address City/[facility] Phone Number [facility] DEPARTMENT OF PATHOLOGY AND [address] [place], [place] [phone] [place] [address] Hemoglobin A1c (04/08/2019 4:32 PM CDT)Only the most recent of2 resultswithin the time period is included. Hemoglobin A1C 7.9 (H) 4.0 - 5.6 % [facility] Comment: HOSPITAL HbA1c cutoffs for diagnosing diabetes: 4.0% - 5.6%=normal 5.7% - 6.4%=increased risk for diabetes (prediabetes) >=6.5%=diabetes Goals for glycemic control (ADA 2016) < 7.0%Target for non adults with diabetes. More or less stringent targets may be appropriate for individual patients. <7.5% Target for Children and adolescents with type 1 diabetes. Specimen Blood Performing Organization Address City/State/Zipcode Phone Number [facility] DEPARTMENT OF PATHOLOGY AND [address] [place] [phone] [address] Venous blood gas (04/08/2019 4:32 PM CDT)Only the most recent of2 resultswithin the time period is included. pH, venous 7.41 7.32 - 7.42 [facility] pCO2, venous 40 (L) 45 - 51 mmHg [facility] pO2, venous 57 (H) 25 - 40 mmHg [facility] Base excess, venous 1 -2 - 2 meq/L [facility] O2 saturation, 89 (H) 40 - 70 % [facility] venous [facility] Bicarbonate, venous 25.3 21.0 - 28.0 [facility] mmol/L [facility] Specimen Blood Performing Organization Address City/State/Zipcode Phone Number [facility] DEPARTMENT OF PATHOLOGY AND [address] [place] [address] GENOMIC MEDICINE [facility] [address] [place] [address] Comprehensive metabolic panel (04/08/2019 4:32 PM CDT)Only the most recent of7 resultswithin the time period is included. Pathologist [facility] Sodium 130 (L) 135 - 148 [facility] mEq/L [facility] Potassium 3.0 (LL) 3.5 - 5.0 [facility] mEq/L [facility] Chloride 95 (L) 98 - 112 mEq/L [facility] CO2 22 (L) 24 - 31 mEq/L [facility] Anion gap 13@ANIO 7 - 15 mEq/L [facility] BUN 1 (L) 8 - 23 mg/dL [facility] Creatinine 0.52 0.50 - 0.90 [facility] mg/dL [facility] Glucose 199 (H) 65 - 99 mg/dL [facility] Calcium 7.9 (L) 8.8 - 10.2 [facility] mg/dL [facility] Protein 5.2 (L) 6.3 - 8.3 g/dL [facility] Comment: HOSPITAL 4.6-7.0 g/dL 1 week 4.4-7.6 g/dL 7 months-1year5.1-7.3 g/dL 1-2 years5.6-7.5 g/dL >3 years6.0-8.0 g/dL 18-150 6.3-8.3 g/dL Albumin 2.3 (L) 3.5 - 5.0 g/dL [facility] A/G ratio 0.8 0.7 - 3.8 [facility] Alkaline phosphatase 107 (H) 35 - 104 U/L [facility] AST 17 10 - 35 U/L [facility] ALT 20 5 - 50 U/L [facility] Total bilirubin 0.7 0.0 - 1.2 [facility] mg/dL [facility]OSPITAL Specimen Plasma specimen Performing Organization Address [facility] Phone Number [facility] DEPARTMENT OF PATHOLOGY AND [address] [place] [phone] Blood culture, aerobic & anaerobic (04/08/2019 2:45 AM CDT)Only the most recent of2 resultswithin the time period is included. Blood culture No growth after 5 days of incubation. [facility] isolate Comment: HOSPITAL Specimen Information Specimen Source: Blood Specimen Site: Antecubital, left Specimen Blood - Antecubital, left Performing Organization Address [facility] Phone Number [facility] DEPARTMENT OF PATHOLOGY AND [address] [place] [address] Lipase level (04/08/2019 2:01 AM CDT)Only the most recent of3 resultswithin the time period is included. Lipase <3 (L) 13 - 60 U/L [facility] Specimen Plasma specimen Performing Organization Address [facility] Phone Number [facility] DEPARTMENT OF PATHOLOGY AND [address] [place] [address] Lactic acid level (04/08/2019 2:01 AM CDT)Only the most recent of5 resultswithin the time period is included. Lactic acid 0.9 0.5 - 2.2 mmol/L [facility] Specimen Plasma specimen Performing Organization Address [facility] Phone Number [facility] DEPARTMENT OF PATHOLOGY AND [address] [place] [address] Beta hydroxybutyrate (04/07/2019 9:17 PM CDT) Beta hydroxybutyrate 3.00 (H) 0.02 - 0.27 [facility] mmol/L [facility] Specimen Serum Performing Organization Address City/[facility]/Zipcode Phone Number [facility] DEPARTMENT OF PATHOLOGY AND [address] [place] [address] [facility] [address] [address] Potassium level (04/07/2019 9:00 PM CDT) Potassium 2.9 (LL) 3.5 - 5.0 mEq/L [facility] Specimen Plasma specimen Performing Organization Address City/[facility]/Zipcode Phone Number [facility] DEPARTMENT OF PATHOLOGY AND [address] [place] [address] GENOMIC MEDICINE [address] [address] XR Chest 1 Vw Portable (04/05/2019 10:42 AM CDT)Only the most recent of4 resultswithin the time period is included. Specimen Narrative Performed At SINGLE VIEW CHEST, 04/05/2019 [facility] Clinical History: Shortness of breath. Possible fluid overload.. Technique: Single, portable AP view chest. Comparison: 04/04/2019 Impression: 1.Left subclavian central venous catheter tip at the distal brachiocephalic vein. 2.NG tube crossing the diaphragm. 3.Increased reticular and lower lobe airspace opacities suggesting worsening pulmonary edema. 4.Upper limits of normal heart size for technique. Mild arch calcification. 5.Intact skeleton. Procedure Note Interface, Radiology Results Incoming - 04/05/2019 10:53 AM CDT SINGLE VIEW CHEST, 04/05/2019 Clinical History: Shortness of breath. Possible fluid overload.. Technique: Single, portable AP view chest. Comparison: 04/04/2019 Impression: 1. Left subclavian central venous catheter tip at the distal brachiocephalic vein. 2. NG tube crossing the diaphragm. 3. Increased reticular and lower lobe airspace opacities suggesting worsening pulmonary edema. 4. Upper limits of normal heart size for technique. Mild arch calcification. 5. Intact skeleton. Performing Organization Address City/[facility]/Zipcode Phone Number [facility] [address] [place] [address] Manual differential (04/05/2019 6:35 AM CDT)Only the most recent of3 resultswithin the time period is included. Manual differential PERFORMED [facility] Neutrophils 86.0 (H) 39.0 - 69.0 % [facility] Lymphocytes 8.0 (L) 25.0 - 45.0 % [facility] Monocytes 5.0 0.0 - 10.0 % [facility] Eosinophils 1.0 0.0 - 5.0 % [facility] Basophils 0.0 0.0 - 1.0 % [facility] Metamyelocytes 0 % [facility] Promyelocytes 0 % [facility] Platelet slide review Kayleen adequate [facility] Specimen Performing Organization Address City/[facility]/Zipcode Phone Number [facility] DEPARTMENT OF PATHOLOGY AND [address] [place] [address] Prepare RBC, 1 Units (04/05/2019 1:45 AM CDT)Only the most recent of3 resultswithin the time period is included. Pathologist [facility] Product name Red Blood Cells [facility] -1, [facility] Unit number [id number] [facility] Product code [id number] [facility] Dispense status Transfused [facility] Blood expiration [id number] [facility] Blood type code 8400 [facility] Blood type AB POSITIVE [facility] Specimen Blood Performing Organization Address City/[facility] Phone Number [facility] DEPARTMENT OF PATHOLOGY AND [address] [place] [address] Type and screen (04/05/2019 1:45 AM CDT)Only the most recent of2 resultswithin the time period is included. ABO grouping AB [facility] Rh type POS [facility] Antibody screen (gel) NEG [facility] Specimen Blood Performing Organization Address City[facility] Phone Number [facility] DEPARTMENT OF PATHOLOGY AND [address] [place] [address] Arterial blood gas (04/03/2019 1:30 AM CDT) Pathologist [facility] pH, arterial 7.30 (L) 7.35 - 7.45 [facility] pCO2, arterial 40 35 - 45 mmHg [facility] pO2, arterial 119 (H) 80 - 90 mmHg [facility] Bicarbonate, 19.1 (L) 21.0 - 28.0 [facility] arterial mmol/L HOSPITAL Base excess, -6 (L) -2 - 2 mEq/L [facility] O2 saturation, 98 95 - 100 % [facility] Specimen Blood Performing Organization Address City[facility] Phone Number [facility] DEPARTMENT OF PATHOLOGY AND [address] [place] [phone] [place] [address] Thyroid stimulating hormone (04/03/2019 1:23 AM CDT) TSH 0.75 0.27 - 4.20 uIU/mL [facility] Specimen Plasma specimen Performing Organization Address City[facility] Phone Number [facility] DEPARTMENT OF PATHOLOGY AND [address] [place] [address] T4, free (04/03/2019 1:23 AM CDT) T4, free 1.6 0.9 - 1.7 ng/dL [facility] Specimen Plasma specimen Performing Organization Address City/[facility] Phone Number [facility] DEPARTMENT OF PATHOLOGY AND [address] [place] [address] Urinalysis screen and microscopy, with reflex to culture (04/02/2019 6:55 PM CDT)Only the most recent of2 resultswithin the time period is included. Specimen site [place] [facility] Color, UA Yellow [facility] Appearance, UA Clear [facility] Specific gravity, UA 1.019 1.001 - 1.035 [facility] pH, UA 5.0 5.0 - 8.5 [facility] Protein, UA Negative Negative [facility] Glucose, UA Negative Negative [facility] Ketones, UA 1+ (A) Negative [facility] Bilirubin, UA Negative Negative [facility] Blood, UA Small (A) Negative [facility] Nitrite, UA Negative Negative [facility] Urobilinogen, UA <2.0 <2.0 [facility] Leukocyte esterase, Negative Negative [facility] WBC, UA 2 0 - 4 /HPF [facility] RBC, UA 21 (H) 0 - 5 /HPF [facility] Bacteria, UA Few None seen [facility] Yeast, UA None seen [facility] Yeast with None seen [facility] pseudohyphae, UA HOSPITAL Hyaline casts, UA 4 /LPF [facility] Specimen Urine Performing Organization Address City/[facility]/Zipcode Phone Number [facility] DEPARTMENT OF PATHOLOGY AND [address] [place] [address] Urine culture (04/02/2019 6:55 PM CDT)Only the most recent of2 resultswithin the time period is included. Pathologist [facility] Urine culture SEE COMMENTComment: [facility] Bacteriuria screen HOSPITAL negative. Specimen Performing Organization Address City/[facility]/Zipcode Phone Number [facility] DEPARTMENT OF PATHOLOGY AND [address] [place] [address] Surgical pathology request (04/02/2019 9:05 AM CDT)Only the most recent of2 resultswithin the time period is included. [facility] DEPARTMENT OF PATHOLOGY AND GENOMIC MEDICINE Surgical pathology See link below [facility] DEPARTMENT OF report for PDF Lab PATHOLOGY AND Report GENOMIC MEDICINE Result status This is Final [facility] DEPARTMENT OF Report for PATHOLOGY AND [id number] GENOMIC MEDICINE Specimen Performing Organization Address [facility] Phone Number [facility] DEPARTMENT OF PATHOLOGY AND [address] [place] [address] GENOMIC MEDICINE Amylase level (04/02/2019 3:42 AM CDT) Amylase 19 (L) 28 - 100 U/L [facility] Specimen Plasma specimen Performing Organization Address City/[facility]/Zipcode Phone Number [facility] DEPARTMENT OF PATHOLOGY AND [address] [place] [address] Echocardiogram complete w contrast and 3D if needed (04/01/2019 12:05 PM CDT) Specimen Narrative Performed At [facility] Echocardiography Report [address] [place] [address] Pat.Name:KELLY SOUSA ANN Pat.ID:[id number] St.Date: 04/01/2019Refer.MD:ESSENCE SEAMAN MD Exam Time: 11:13:00 AM Study Type:Routine Echo Height:63inWeight: 107lb BSA: 1.48 m2 DOBAge:1945,73Y Sex: FEMALEBP:147/67 HR:61 bpmSonogrphr: Johana Caldwell CATHY Pat. Stat.:Inpatient Room:[address] Study Status:Final Echo Event ID:[id number] Order ID:[id number] Reason for Study:Aortic Stenosis History / Clinical:Diabetes, Hyperlipidemia, Hypertension Procedures:2D Echo, Colorflow Doppler, Intravenous Optison Contrast Race:C SUMMARY: Technically difficult study. Aortic valve not well seen but appears to open well with no significant transvalvular mean PG or peak velocity to suggest aortic stenosis. Normal LVEF and filling pressure. Grossly normal RV systolic function. Normal RAP estimate. FINDINGS: LV: LV size is normal. LV EF is normal. Difficult to assess regionalwall motion; however it appears grossly normal. EstimatedEF is 65-69% RV: RV size is difficult to assess. Difficult to assess RV systolicfunction but it appears grossly normal. LA: LA size is normal. RA: RA size is normal. AO: Aortic root diameter is normal. BRADY: No pericardial effusion. SVn:Inferior vena cava is normal. Normal collapse of IVC during inspirationis consistent with normal RA pressure. AV: Aortic valve not well seen. Mild aortic regurgitation. MV: No structural MV abnormalities noted. Mild mitral regurgitation. PV: No structural PV abnormalities noted. TV: No structural TV abnormalities noted. [place]: Diastolic dysfunction Grade I (Mild): Impaired relaxation withnormal LV filling pressures. Other:Estimated PA systolic pressure is 25-30 mmHg, assuming a meanRAP of 0-5 mmHg. Insufficient TR jet to estimate PA systolicpressure. MEASUREMENTS: 2D Parasternal Long [place] Ao An1.7 cmLVPWd0.9 cm LVOT 1.6 cmLA Ds2.1 cm LVIDd3.9 cmIndex2.6 cm/m Ao Rtd 3.1 cm Index2.1 cm/m LVIDs1.7 cmLV Mass 90.3 g(87-129) LV%fs 55 % LVM Index 61 g/m2 IVSd 0.7 cmRWT0.5 LA Sng Plane LA Area 13.6 cm2(8.8-23.4) LA Vol36.5 ml Index24.7 ml/m LA LngAx 4.1 cm RA Sng Plane RA Area 11.9 cm2(8.3-19.5) RA Vol27.4 ml Index18.5 ml/m RA LngAx 4.2 cm DOPPLER LVOT Stroke Vol LVOT 1.6 cmLVOT CO2.9 l/min LVOT TVI23.6 cmLVOT CI2 l/m/m2 LVOT Tm324 wouaZX64 bpm LVOT SV 47.4 ml AV For Flow/KEMAL AV pkVel 153.9 cm/s (100-170) AV ET316 msec AV mnVel 111.4 cm/Ricki AC/ET 0.2 AV pkPG9.5 mmHgAV TVI35.2 cm AV Mean G5.6 mmHgAVpkAcRt 6802.8 cm/s2 AV AC 49 msec (83-118) AV ZuVe050.3 cm/s2 LVOT For Flow LVOT Area1.8 cm2 HR58.4 bpm Signed 04/01/2019 02:49 PM Abner Callaway M.D. Procedure Note Interface, Radiology Results In - 04/01/2019 2:50 PM CDT Echocardiography Report [id number] [facility] [address], [place] [address] Pat.Name: KELLY SOUSA Pat.ID: [id number] .Date: 04/01/2019 Refer.MD: ESSENCE SEAMAN MD Exam Time: 11:13:00 AM Study Type:Routine Echo Height: 63in Weight: 107lb BSA: 1.48 m2 Age: 9 1945,73Y Sex: FEMALE BP: 147/67 HR: 61 bpm Sonogrphr: Johana Caldwell RDCS Pat. Stat.:Inpatient Room: [address] Study Status:Final Echo Event ID:[id number] Order ID: [id number] Reason for Study:Aortic Stenosis History / Clinical:Diabetes, Hyperlipidemia, Hypertension Procedures:2D Echo, Colorflow Doppler, Intravenous Optison Contrast Race: C SUMMARY: Technically difficult study. Aortic valve not well seen but appears to open well with no significant transvalvular mean PG or peak velocity to suggest aortic stenosis. Normal LVEF and filling pressure. Grossly normal RV systolic function. Normal RAP estimate. FINDINGS: LV: LV size is normal. LV EF is normal. Difficult to assess regional wall motion; however it appears grossly normal. Estimated EF is 65-69% RV: RV size is difficult to assess. Difficult to assess RV systolic function but it appears grossly normal. LA: LA size is normal. RA: RA size is normal. AO: Aortic root diameter is normal. BRADY: No pericardial effusion. SVn: Inferior vena cava is normal. Normal collapse of IVC during inspiration is consistent with normal RA pressure. AV: Aortic valve not well seen. Mild aortic regurgitation. MV: No structural MV abnormalities noted. Mild mitral regurgitation. PV: No structural PV abnormalities noted. TV: No structural TV abnormalities noted. [place]al[place]: Diastolic dysfunction Grade I (Mild): Impaired relaxation with normal LV filling pressures. Other: Estimated PA systolic pressure is 25-30 mmHg, assuming a mean RAP of 0-5 mmHg. Insufficient TR jet to estimate PA systolic pressure. MEASUREMENTS: 2D Parasternal Long [place] Ao An 1.7 cm LVPWd 0.9 cm LVOT 1.6 cm LA Ds 2.1 cm LVIDd 3.9 cm Index 2.6 cm/m Ao Rtd 3.1 cm Index 2.1 cm/m LVIDs 1.7 cm LV Mass 90.3 g (87-129) LV%fs 55 % LVM Index 61 g/m2 IVSd 0.7 cm RWT 0.5 LA Sng Plane LA Area 13.6 cm2 (8.8-23.4) LA Vol 36.5 ml Index 24.7 ml/m LA LngAx 4.1 cm RA Sng Plane RA Area 11.9 cm2 (8.3-19.5) RA Vol 27.4 ml Index 18.5 ml/m RA LngAx 4.2 cm DOPPLER LVOT Stroke Vol LVOT 1.6 cm LVOT CO 2.9 l/min LVOT TVI 23.6 cm LVOT CI 2 l/m/m2 LVOT Tm 324 msec HR 61 bpm LVOT SV 47.4 ml AV For Flow/KEMAL AV pkVel 153.9 cm/s (100-170) AV ET 316 msec AV mnVel 111.4 cm/s AV AC/ET 0.2 AV pkPG 9.5 mmHg AV TVI 35.2 cm AV Mean G 5.6 mmHg AVpkAcRt 6802.8 cm/s2 AV AC 49 msec (83-118) AV DeRt 487.3 cm/s2 LVOT For Flow LVOT Area 1.8 cm2 HR 58.4 bpm Signed 04/01/2019 02:49 PM Abner Callaway M.D. Performing Organization Address City/State/Zipcode Phone Number [facility] [address] [place] [address] Cytology (non-gynecological) request (04/01/2019 11:48 AM CDT)Only the most recent of2 resultswithin the time period is included. [facility] DEPARTMENT OF PATHOLOGY AND GENOMIC MEDICINE Cytology See link below for [facility] DEPARTMENT OF (non-gynecological PDF Lab Report PATHOLOGY AND ) report GENOMIC MEDICINE Result status This is Supplemental [facility] DEPARTMENT OF Report for PATHOLOGY AND [id number] GENOMIC MEDICINE Specimen Performing Organization Address City/[facility] Phone Number [facility] DEPARTMENT OF PATHOLOGY AND [address] [place] [address] Carcinoembryonic antigen (CEA) (03/31/2019 9:02 AM CDT) Pathologist [facility] CEA 12.4 (H) 0.0 - 3.8 [facility] Comment: ng/mL [facility] Reference range for heavy smokers:0.0 - 5.5 ng/mL The NIKKI Becca 8000 CEA immunoassay was used. Results obtained with different assay methods or kits should not be used interchangeably and may be different. Specimen Serum Performing Organization Address City/[facility] Phone Number [facility] DEPARTMENT OF PATHOLOGY AND [address] [place] [address] Uric acid level (03/31/2019 4:00 AM CDT) [facility] [address] Uric acid 2.7 2.4 - 5.7 mg/dL [facility] Specimen Plasma specimen Performing Organization Address City/[facility] Phone Number [facility] DEPARTMENT OF PATHOLOGY AND [address] [place] [address] Troponin (03/29/2019 8:50 PM CDT)Only the most recent of2 resultswithin the time period is included. [facility] [address] Troponin <0.006 0.000 - 0.040 [facility] Comment: ng/mL [facility] changed methodology effective: 01/01/2019 at 10:00 am The new method has a 99th percentile cutoff of 0.040 ng/mL Specimen Plasma specimen Performing Organization Address City/[facility]/Zipcode Phone Number [facility] DEPARTMENT OF PATHOLOGY AND [address] [place] [phone] GENOMIC MEDICINE [facility] [address] [place] [address] CT Abdomen Pelvis W Contrast (03/29/2019 6:22 PM CDT) Specimen Narrative Performed At EXAMINATION:CT ABDOMEN PELVIS W CONTRAST RADIANT CLINICAL HISTORY:ruq pain TECHNIQUE: Multiple axial images of the abdomen and pelvis were obtained following intravenous administration of iodinated contrast. Sagittal and coronal computerized reformatted images were also obtained.Automatic exposure control or iterative reconstruction techniques used to reduce dose. COMPARISON:None. Impression: 1.There is a common duct stent noted, the upper portion of the stent is at the lower common duct level, and above it the common duct is approximately 8 mm in diameter without significant intrahepatic biliary dilatation. Adjacent to the stent within the head of the pancreas, there is a irregular centrally hypoenhancing lesion measuring 2.3 x 1.5 cm. This is suspicious for a pancreatic neoplasm. No encasement of the SMA or SMV are identified. Correlation with prior history and imaging recommended. (Pseudocyst thought to be less likely given degree of nodular wall enhancement.) 2.The more distal pancreas is diffusely atrophic containing calcifications and dorsal pancreatic duct is 7 mm and diffusely dilated. This will be compatible with chronic pancreatitis. 3.No evidence for metastatic disease in the liver. Adrenals, kidneys, and spleen appear unremarkable. Granulomatous calcific lesions are seen in the liver and spleen. No evidence for bowel obstruction. Gallbladder is moderately distended. No significant retroperitoneal or pelvic lymphadenopathy. Osseous structures are intact. [facility]-[id number] Procedure Note Interface, Radiology Results Incoming - 03/29/2019 6:47 PM CDT EXAMINATION: CT ABDOMEN PELVIS W CONTRAST CLINICAL HISTORY: ruq pain TECHNIQUE: Multiple axial images of the abdomen and pelvis were obtained following intravenous administration of iodinated contrast. Sagittal and coronal computerized reformatted images were also obtained.Automatic exposure control or iterative reconstruction techniques used to reduce dose. COMPARISON: None. Impression: 1. There is a common duct stent noted, the upper portion of the stent is at the lower common duct level, and above it the common duct is approximately 8 mm in diameter without significant intrahepatic biliary dilatation. Adjacent to the stent within the head of the pancreas, there is a irregular centrally hypoenhancing lesion measuring 2.3 x 1.5 cm. This is suspicious for a pancreatic neoplasm. No encasement of the SMA or SMV are identified. Correlation with prior history and imaging recommended. (Pseudocyst thought to be less likely given degree of nodular wall enhancement. ) 2. The more distal pancreas is diffusely atrophic containing calcifications and dorsal pancreatic duct is 7 mm and diffusely dilated. This will be compatible with chronic pancreatitis. 3. No evidence for metastatic disease in the liver. Adrenals, kidneys, and spleen appear unremarkable. Granulomatous calcific lesions are seen in the liver and spleen. No evidence for bowel obstruction. Gallbladder is moderately distended. No significant retroperitoneal or pelvic lymphadenopathy. Osseous structures are intact. [facility]-[id number] Performing Organization Address [facility] Phone Number [facility] [address] [place] [phone] Lactic acid level, SEPSIS - Now and repeat 2x every 3 hours (03/29/2019 5:13 PM CDT)Only the most recent of2 resultswithin the time period is included. Lactic acid 1.5 0.5 - 2.2 mmol/L [facility] Specimen Blood Performing Organization Address [facility] Phone Number [facility] DEPARTMENT OF PATHOLOGY AND [address] [place] [phone] [address] Cancer antigen 19-9 (03/29/2019 3:37 PM CDT) CA 19-9 552 (H) 0 - 35 U/mL [facility] Comment: HOSPITAL The Nikki Becca 8000 CA19-9 immunoassay was used. Results obtained with different assay methods or kits should not be used interchangeably and may be different. Specimen Plasma specimen Performing Organization Address [facility] Phone Number [facility] DEPARTMENT OF PATHOLOGY AND [address] [place] [phone] [address] [place] Gallbladder (03/29/2019 12:35 PM CDT) Specimen Narrative Performed At Examination: US GALLBLADDER [facility] Clinical history: ruq pain Comparison: None IMPRESSION:Transverse and longitudinal sonographic images were obtained through the gallbladder fossa. 1.There is layering sludge in the gallbladder with mild gallbladder distention. No wall thickening. No gallstones are seen. 2.The common duct is within normal limits at7 mm, within normal limits for patient age. There is a stent seen in the common bile duct. Note is made of dilatation of the pancreatic duct measuring up to 8 mm. Findings can be further assessed with MRCP. 3.The portal vein is patent. [facility]-[id number] Procedure Note [facility], Radiology Results Incoming - 03/29/2019 1:04 PM CDT Examination: US GALLBLADDER Clinical history: ruq pain Comparison: None IMPRESSION: Transverse and longitudinal sonographic images were obtained through the gallbladder fossa. 1. There is layering sludge in the gallbladder with mild gallbladder distention. No wall thickening. No gallstones are seen. 2. The common duct is within normal limits at 7 mm, within normal limits for patient age. There is a stent seen in the common bile duct. Note is made of dilatation of the pancreatic duct measuring up to 8 mm. Findings can be further assessed with MRCP. 3. The portal vein is patent. [facility]-[id number] Performing Organization Address City/[facility]/Zipcode Phone Number [facility] [address] [place] [address] B natriuretic peptide (03/29/2019 11:50 AM CDT) BNP 42 0 - 100 pg/mL [facility] Specimen Blood Performing Organization Address City/[facility] Phone Number [facility] DEPARTMENT OF PATHOLOGY AND [address] [place] [phone] [place] [phone] Alcohol level, blood (03/29/2019 11:50 AM CDT) Alcohol None Detected mg/dL [facility] Comment: HOSPITAL Normal None Detected Legal Intoxication in [place]80 mg/dL (0.08%) - Whole Blood Toxic [id number] mg/dL (0.2%) Potentially [id number] - 500 mg/dL (0.35 - 0.5%) Alcohol percent None Detected % [facility] Specimen Plasma specimen Performing Organization Address [facility] Phone Number 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
--- OUTSIDE RECORDS SUMMARY | 2019-05-05 19:39 | XMS REPORT | Encounter Summary ---
:1945 Author Reason for Visit congestion Instructions 1. Bacterial pneumonia ceftriaxone 1 gram solution for injection doxycycline hyclate 100 mg capsule benzonatate 200 mg capsule Discussion Note: None recorded.Patient educational handouts: No information available. Plan of Care Reminders Provider Appointments Follow up 01/07/2019 Marcos Cage MD 10:15AM Lab None recorded. Referral None recorded. Procedures None recorded. Surgeries None recorded. Imaging None recorded. Medications Name Start Date albuterol sulfate HFA 90 mcg/actuation aerosol inhaler Inhale 2 puffs every 4 hours by inhalation route. Alphagan P 0.1 % eye drops amlodipine 5 mg tablet Take 1 tablet every day by oral route. Aspir-81 atorvastatin 40 mg tablet Take 1 tablet every day by oral route. BD Ultra-Fine Aleta Pen Needle 32 gauge x 5/32" benzonatate 200 mg capsule Take 1 capsule 3 times a day by oral route. take as needed for cough carvedilol 25 mg tablet Take 2 tablets every day by oral route. ceftriaxone 1 gram solution for injection Take 1 g by injection route. clobetasol 0.05 % lotion APPLY A THIN LAYER TO THE AFFECTED AREA(S) BY TOPICAL ROUTE 2 TIMES PER DAY Creon 36,000 unit-114,000 unit-180,000 unit capsule,delayed release doxycycline hyclate 100 mg capsule Take 1 capsule twice a day by oral route. take for infection Humalog KwikPen (U-100) Insulin 100 unit/mL subcutaneous Inject 10 units 3 times a day by subcutaneous route. Humulin N NPH Insulin KwikPen Humulin N NPH U-100 Insulin KwikPen 100 unit/mL (3 mL) subcutaneous Inject 28 units every day by subcutaneous route in the morning. Imodium A-D losartan 100 mg tablet Take 1 tablet every day by oral route. meloxicam 15 mg tablet Take 1 tablet every day by oral route. Suprep Bowel Prep Kit 17.5 gram-3.13 gram-1.6 gram oral solution Synthroid 100 mcg tablet Take 1 tablet every day by oral route. Travatan Z 0.004 % eye drops Vitamin D3 Medications Administered Name Date ceftriaxone 1 gram solution for injection [id number]:33:00 Take 1 g by injection route. Vitals Height Weight BMI Blood Pressure 62 in 121 lbs 22.1 kg/m2 120/70 mm[Hg] Lab Results Date Name Specimen Result Interpretation Description Value Range Status Address 10/05/2018 CBC W/ Auto Normal White Blood 10.8 4.0-11.5 Final [place] Diff Count K/uL K/uL [facility] (Lab): [address] [place] [address] Normal Red Blood 4.13 3.80-5.20 Final [place] Count M/uL M/uL [facility] (Lab): [address] [place] [address] Normal Hemoglobin 13.1 10.5-15.7 Final [place] g/dL g/dL [facility] (Lab): [address] [place] [address] Normal Hematocrit 39.7 34.0-50.0 Final [place] % % [facility] (Lab): [address] [place] [address] Normal Mean 96.1 78-98 fL Final [place] Corpuscular fL [facility] Volume [facility] (Lab): [address] [place] [address] Normal Mean 31.7 26.2-33.4 Final [place] Corpuscular pg pg [facility] Hemoglobin [facility] (Lab): [address] [place] [address] Normal Mean 33.0 31.5-36.2 Final [place] Corpuscular HGB g/dL g/dL [facility] Conc [facility] (Lab): [address] [place] [address] Normal Red Cell 12.5 11.5-15.5 Final [place] Distribution % % [facility] (Lab): [address] [place] [address] Normal Platelet Count 250 137-338 Final [place] K/uL K/uL [facility] (Lab): [address] [place] [address] Low Mean Platelet 7.7 8.4-11.8 Final [place] Volume fL [facility] (Lab): [address] [place] [address] Normal Neutrophils % 66.8 44.4-80.1 Corrected [place] % % [facility] (Lab): [address] [place] [address] Normal Lymphocyte% 23.0 10.0-50.0 Final [place] % % [facility] (Lab): [address] [place] [address] Normal Crook % 6.7 % 3.6-12.04 Final [place] % [facility] (Lab): [address] [place] [address] Normal Eos % 2.3 % 0.0-5.41 Final [place] % [facility] (Lab): [address] [place] [address] High Basophil % 1.1 % 0.0-0.79 Final [place] % [facility] (Lab): [address] [place] [address] 10/05/2018 Differential Normal Neutrophils Incomplete [facility], Blood [facility] (Lab): [address] [place] [address] Normal Band Incomplete [facility] (Lab): [address] [place] [address] Normal Lymphocyte Incomplete [facility] (Lab): [address] [place] [address] Normal Monocyte Incomplete [facility] (Lab): [address] [place] [address] Normal Eosinophil Incomplete [facility] (Lab): [address] [place] [address] Normal Platelet [facility] Estimate [facility] (Lab): [address] [place] [address] Normal Platelet Incomplete [place] Morphology [facility] (Lab): [address] [place] [address] Normal Poikilocytosis Incomplete [facility] (Lab): [address] [place] [address] Normal Smudge Cells [facility] (Lab): [address] [place] [address] 10/05/2018 Microalbumin, Normal Microalbumin <12.0 0-20 mg/L Final [place] Urine Random mg/L [facility] (Lab): [address] [place] [address] 10/05/2018 Hepatic Normal Total Protein 7.0 6.6-8.7 Final [place] Function g/dL g/dL [facility] Serum [facility] (Lab): [address] [place] [address] Normal Albumin 4.6 3.5-5.2 Final [place] g/dL g/dL [facility] (Lab): [address] [place] [address] Normal Bilirubin,tota 0.7 0.0-1.2 Final [place] l mg/dL mg/dL [facility] (Lab): [address] [place] [address] Normal Bilirubin,dire <0.20 0.0-0.[address] [place] [address] mg/dL mg/dL [facility] (Lab): [address] [place] [address] High AST/SGOT 36 15-32 U/L Final [place] U/L [facility] (Lab): [address] [place] [address] High ALT/SGPT 39 0-33 U/L Final [place] U/L [facility] (Lab): [address] [place] [address] High Alkaline 124 35-105 Final [place] Phosphatase, U/L U/L [facility] Total [facility] (Lab): [address] [place] [address] 10/05/2018 Amylase, Serum Normal Amylase Level 31 28-100 Final [place] or Plasma U/L U/L [facility] (Lab): [address] [place] [address] 10/05/2018 Lipase, Serum Low Lipase 12 13-60 U/L Final [place] or Plasma U/L [facility] (Lab): [address] [place] [address] 10/05/2018 Lipid Panel, Low Cholesterol 127 150-200 Final [place] Serum Level mg/dL mg/dL [facility] (Lab): [address] [place] [address] Normal Triglycerides 57 <150 Final [place] Level mg/dL mg/dL [facility] (Lab): [address] [place] [address] Normal HDL 68 >65 mg/dL Final [place] Cholesterol mg/dL [facility] (Lab): [address] [place] [address] Normal LDL 57 <100 Final [place] Cholesterol mg/dL mg/dL [facility] Direct [facility] (Lab): [address] [place] [address] Normal Cholesterol 1.867 Final [place] Risk Ratio [facility] (Lab): [address] [place] [address] 10/05/2018 Vitamin B12 + Normal Vitamin B12 591.5 211-946 Final [place] Folate, Serum pg/mL pg/mL [facility] or Blood [facility] (Lab): [address] [place] [address] Normal Folate >20 4.78-24.2 Final [place] NG/mL NG/mL [facility] (Lab): [address] [place] [address] 10/05/2018 Vitamin D, High Vit D 25 51.45 6.4-49.5 Final [place] 25-Hydroxy, Hydroxy NG/mL NG/mL [facility] Total Serum [facility] (Lab): [address] [place] [address] 10/05/2018 Hemoglobin High Hemoglobin a1C 8.2 % 4.0-6.0 % Final [place] a1C, QN, Blood [facility] (Lab): [address] [facility] 10/05/2018 Fecal Fat, Fat 72H Final [place] Quantitative, Stl-mrate [facility] (Lab): [address] [facility] Allergies Code Code System Name Reaction Severity Status Onset NKDA Problems Name Status Onset Date Source Type II Diabetes Mellitus Uncontrolled Active 08/24/2017 Mixed Hyperlipidemia Active 08/24/2017 Smoker Active 08/24/2017 Chronic Depression Active 08/24/2017 Benign Essential Hypertension Active 08/24/2017 Chronic Obstructive Lung Disease Active 09/06/2017 Hyponatremia Active 01/08/2018 Unexplained Weight Loss Active 01/08/2018 Chronic Diarrhea of Unknown Origin Active 01/08/2018 Diarrhea Active 01/08/2018 Chronic Steatorrhea Active 04/09/2018 Chronic Pancreatitis Active 07/10/2018 Bacterial Pneumonia Active 10/31/2018 Procedures Date Name Performed by Tonsillectomy Information not available Vaccine List Vaccine Type influenza, high dose seasonal 06/13/20180.5 mL Social History Smoking Status Current Every Day Smoker Past Encounters 10/31/2018 Bacterial Pneumonia Marcos Cage MD: [address], [address], [place] [address], Ph. 10/10/2018 Type II Diabetes Mellitus Uncontrolled; Chronic Obstructive Lung Disease; Benign Essential Hypertension; Mixed Hyperlipidemia; Chronic Pancreatitis Marcos Cage MD: [address], [address], [place] [address], Ph. [phone] History of Present Illness Note: CC chest congestion and productive cough x 1 wk<div>hpi sx worsening now with slight fevermoderate severity</div><div>ros</ div><div>gen does not feel well</div><div>cv neg</div&gt ;<div>resp above</div><div>
</div>Review of Systems: ROS as noted in the HPI Review of Systems None recorded. Physical Exam Dr. Cage Brief Adult Exam - M/F Reported By: Patient Constitutional: General Appearance: healthy-appearing, well-nourished, well-developed. Level of Distress: moderate distress, acutely ill. Ambulation: ambulating normally Lungs: Auscultation: good air movement, no wheezing, no rhonchi, rales / crackles on the left Cardiovascular: Heart Auscultation: RRR, no rubs
--- OUTSIDE RECORDS SUMMARY | 2019-05-05 19:39 | XMS REPORT | Encounter Summary ---
:1945 Author Reason for Visit Follow Up Visit Instructions 1. Chronic pancreatitis pancreatitis: care instructions gastroenterology referral amylase + lipase, serum 2. Chronic obstructive lung disease 3. Smoker LDCT, chest, for lung cancer screening Discussion Note: None recorded. Plan of Care Reminders Provider Appointments Follow up Marcos Cage MD 04/09/2019 10:30AM Lab Amylase + Lipase, [place] Serum 01/07/2019 [facility] (Lab) Referral Gastroenterology Viri Oh MD Referral 01/25/2019 Procedures None recorded. Surgeries None recorded. Imaging LDCT, Chest, for [place] Lung Cancer Screening 01/11/2019 [facility] (Scheduling) Medications Name Start Date albuterol sulfate HFA 90 mcg/actuation aerosol inhaler Inhale 2 puffs every 4 hours by inhalation route. Alphagan P 0.1 % eye drops amlodipine 5 mg tablet Take 1 tablet every day by oral route. Aspir-81 atorvastatin 40 mg tablet Take 1 tablet every day by oral route. BD Ultra-Fine Aleta Pen Needle 32 gauge x 5/32" carvedilol 25 mg tablet Take 2 tablets every day by oral route. clobetasol 0.05 % lotion APPLY A THIN LAYER TO THE AFFECTED AREA(S) BY TOPICAL ROUTE 2 TIMES PER DAY Creon 36,000 unit-114,000 unit-180,000 unit capsule,delayed release Humalog KwikPen (U-100) Insulin 100 unit/mL subcutaneous [...] 1 tablet every day by oral route. pantoprazole 40 mg tablet,delayed release Suprep Bowel Prep Kit 17.5 gram-3.13 gram-1.6 gram oral solution Synthroid 100 mcg tablet Take 1 tablet every day by oral route. Travatan Z 0.004 % eye drops Vitamin D3 Medications Administered None recorded. Vitals Height Weight BMI Blood Pressure 62 in 119 lbs 16 oz 21.9 kg/m2 123/72 mm[Hg] Lab Results Date Name Specimen Result Interpretation Description Value Range Status Address 01/01/2019 Hemoglobin High Hemoglobin 8.6 % 4.0-6.0 Final [place] a1C, QN, Blood a1C % [facility] (Lab): [address] [place] [address] 01/01/2019 CBC W/ Auto Normal White Blood 11.3 4.0-11.5 Final [place] Diff Count K/uL K/uL [facility] (Lab): [address] [place] [address] Normal Red Blood 4.36 3.80-5.2 Final [place] Count M/uL 0 M/uL [facility] (Lab): [address] [place] [address] Normal Hemoglobin 13.0 10.5-15. Final [place] g/dL 7 g/dL [facility] (Lab): [address] [place] [address] Normal Hematocrit 40.8 34.0-50. Final [place] % 0 % [facility] (Lab): [address] [place] [address] Normal Mean 93.7 78-98 fL Final [place] Corpuscular fL [facility] Volume [facility] (Lab): [address] [place] [address] Normal Mean 29.9 26.2-33. Final [place] Corpuscular pg 4 pg [facility] Hemoglobin [facility] (Lab): [address] [place] [address] Normal Mean 31.9 31.5-36. Final [place] Corpuscular g/dL 2 g/dL [facility] (Lab): [address] [place] [address] Normal Red Cell 12.3 11.5-15. Final [place] Distribution % 5 % [facility] (Lab): [address] [place] [address] Normal Platelet 263 137-338 Final [place] Count K/uL K/uL [facility] (Lab): [address] [place] [address] Low Mean Platelet 7.7 8.4-11.8 Final [place] Volume fL fL [facility] (Lab): [address] [place] [address] Normal Neutrophils % 65.9 44.4-80. Corrected [place] % 1 % [facility] (Lab): [address] [place] [address] Normal Lymphocyte% 23.4 10.0-50. Final [place] % 0 % [facility] (Lab): [address] [place] [address] Normal [place] % 6.0 % 3.6-12.0 Final [place] 4 % [facility] (Lab): [address] [place] [address] Normal Eos % 3.1 % 0.0-5.41 Final [place] % [facility] (Lab): [address] [place] [address] High Basophil % 1.6 % 0.0-0.79 Final [place] % [facility] (Lab): [address] [place] [address] 01/01/2019 Differential Normal Neutrophils Incomplete [place] Panel, Blood [facility] (Lab): [address] [place] [address] Normal Lymphocyte Incomplete [place] [facility] (Lab): [address] [place] [address] Normal Monocyte Incomplete [place] [facility] (Lab): [address] [place] [address] Normal Platelet Incomplete [place] Estimate [facility] (Lab): [address] [place] [address] Normal Platelet Incomplete [place] Morphology [facility] (Lab): [address] [place] [address] 01/01/2019 Microalbumin, Normal Microalbumin <12.0 0-20 Final [place] Urine Random mg/L mg/L [facility] (Lab): [address] [place] [address] 01/01/2019 CMP, Serum or High Glucose 284 82-115 Final [place] Plasma mg/dL mg/dL [facility] (Lab): [address] [place] [address] Normal Blood Urea 17 8-23 Final [place] Nitrogen mg/dL mg/dL [facility] (Lab): [address] [place] [address] Low Osmolality 277 280-300 Final [place] Calculated, [facility] Serum [facility] (Lab): [address] [place] [address] Normal Creatinine 0.8 0.50-0.9 Final [place] mg/dL 0 mg/dL [facility] (Lab): [address] [place] [address] Normal Glomerular >60.0 Final [place] Filtration 0 [facility] (Lab): [address] [place] [address] High BUN/creatinin 21.3 12-20 Final [place] e Ratio [facility] (Lab): [address] [place] [address] Low Sodium Level 132 135-145 Final [place] mmol/ mmol/L [facility] (Lab): [address] [place] [address] High Potassium 5.5 3.5-5.2 Final [place] Level mmol/ mmol/L [facility] (Lab): [address] [place] [address] Low Chloride 95 98-108 Final [place] Level mmol/ mmol/L [facility] (Lab): [address] [place] [address] Normal Co2 22 21-32 Final [place] mmol/ mmol/L [facility] (Lab): [address] [place] [address] High Anion Gap 20.5 12-20 Final [place] mEq/L mEq/L [facility] (Lab): [address] [place] [address] Normal Calcium Level 9.5 8.8-10.2 Final [place] mg/dL mg/dL [facility] (Lab): [address] [place] [address] Normal Total Protein 6.8 6.6-8.7 Final [place] g/dL g/dL [facility] (Lab): [address] [place] [address] Normal Albumin 4.3 3.5-5.2 Final [place] g/dL g/dL [facility] (Lab): [address] [place] [address] Normal Globulin 2.5 Final [place] gm/dL [facility] (Lab): [address] [place] [address] Normal A/g Ratio 1.7 >1.0 Final [place] [facility] (Lab): [address] [place] [address] Normal Bilirubin,tot 0.8 0.0-1.2 Final [place] al mg/dL mg/dL [facility] (Lab): [address] [place] [address] Normal AST/SGOT 31 15-32 Final [place] U/L U/L [facility] (Lab): [address] [place] [address] High ALT/SGPT 44 0-33 U/L Final [place] U/L [facility] (Lab): [address] [place] [address] High Alkaline 131 35-105 Final [place] Phosphatase, U/L U/L [facility] (Lab): [address] [place] [address] 01/01/2019 Lipid Panel, Low Cholesterol 117 150-200 Final [place] Serum Level mg/dL mg/dL [facility] (Lab): [address] [place] [address] Normal Triglycerides 74 <150 Final [place] Level mg/dL mg/dL [facility] (Lab): [address] [place] [address] Low HDL 63 >65 Final [place] Cholesterol mg/dL mg/dL [facility] (Lab): [address] [place] [address] Normal LDL 55 <100 Final [place] Cholesterol mg/dL mg/dL [facility] (Lab): [address] [place] [address] Normal Cholesterol 1.857 Final [place] Risk Ratio [facility] (Lab): [address] [place] [address] 12/19/2018 Vitamin B12, Normal Vitamin B12 872.8 211-946 Final [place] Serum pg/mL pg/mL [facility] (Lab): [address] [place] [address] 12/19/2018 Folate, RBC Normal Folate 587.2 not Final [place] Hemolysate NG/mL estab. [facility] NG/mL [facility] (Lab): [address] [place] [address] Normal RBC Folate 1450 >498 Final [place] NG/mL NG/mL [facility] (Lab): [address] [place] [address] Normal Hematocrit 40.5 34.0-46. Final [place] % 6 % [facility] (Lab): [address] [place] [address] Allergies Code Code System Name Reaction Severity [...] Status Current Every Day Smoker Past Encounters 01/07/2019 Chronic Pancreatitis; Chronic Obstructive Lung Disease; Smoker Marcos Cage MD: [address] [place] [address], [address], [place] [address], Ph. History of Present Illness Note: CC chronic pain from pancreatitis<div>hpi pt very concerned since has not been drinking and eating exacerbates the pain</div><div& gt;CC DM</div><div>hpi aic 8.6</div><div>still smoking& lt;/div><div>reos</div><div>gen chronic pain</div>&lt ;div>resp coughing </div><div>cv neg</div><div>gi above</div>Review of Systems: ROS as noted in the HPI Review of Systems None recorded. Physical Exam Dr. Cage Brief Adult Exam - M/F Reported By: Patient Constitutional: General Appearance: healthy-appearing, well-nourished, well-developed. Level of Distress: NAD. Ambulation: ambulating normally Lungs: Auscultation: good air movement, no wheezing, no rhonchi, rales/crackles on the right Cardiovascular: Heart Auscultation: RRR, no rubs, no gallops
--- OUTSIDE RECORDS SUMMARY | 2019-05-05 19:39 | XMS REPORT | Encounter Summary ---
:1945 Author Reason for Visit Pain Instructions 1. Chronic pancreatitis pancreatitis: care instructions tramadol 50 mg tablet pain management referral Discussion Note: None recorded. Plan of Care Reminders Provider Appointments Follow up Marcos Cage MD 04/09/2019 10:30AM Lab None recorded. Referral Pain Fran Cheng MD Management Referral 01/28/2019 Procedures None recorded. Surgeries None recorded. Imaging [...] 1 tablet every day by oral route. tramadol 50 mg tablet Take 1 tablet twice a day by oral route. take as needed for pain Travatan Z 0.004 % eye drops Vitamin D3 Medications Administered None recorded. Vitals Height Weight BMI Blood Pressure 62 in 118 lbs 16 oz 21.8 kg/m2 162/80 mm[Hg] Lab Results Date Name Specimen Result Interpretation Description Value Range Status Address 01/07/2019 Amylase, Serum Low Amylase Level 23 28-100 Final [place] or Plasma U/L U/L [facility] (Lab): [address] [place] [address] 01/07/2019 Lipase, Serum Low Lipase 8 13-60 Final [place] or Plasma U/L U/L [facility] (Lab): [address] [place] [address] 01/01/2019 Hemoglobin High Hemoglobin a1C 8.6 4.0-6.0 Final [place] a1C, QN, Blood % % [facility] (Lab): [address] [place] [address] 01/01/2019 CBC W/ Auto Normal White Blood 11.3 4.0-11. Final [place] Diff Count K/uL 5 K/uL [facility] (Lab): [address] [place] [address] Normal Red Blood 4.36 3.80-5. Final [place] Count M/uL 20 M/uL [facility] (Lab): [address] [place] [address] Normal Hemoglobin 13.0 10.5-15 Final [place] g/dL .7 g/dL [facility] (Lab): [address] [place] [address] Normal Hematocrit 40.8 34.0-50 Final [place] % .0 % [facility] (Lab): [address] [place] [address] Normal Mean 93.7 78-98 Final [place] Corpuscular fL [facility] (Lab): [address] [place] [address] Normal Mean 29.9 26.2-33 Final [place] Corpuscular pg .4 pg [facility] (Lab): [address] [place] [address] Normal Mean 31.9 31.5-36 Final [place] Corpuscular HGB g/dL .2 g/dL [facility] Con[facility] (Lab): [address] [place] [address] Normal Red Cell 12.3 11.5-15 Final [place] Distribution % .5 % [facility] Width [facility] (Lab): [address] [place] [address] Normal Platelet Count 263 137-338 Final [place] K/uL K/uL [facility] (Lab): [address] [place] [address] Low Mean Platelet 7.7 8.4-11. Final [place] Volume fL 8 fL [facility] (Lab): [address] [place] [address] Normal Neutrophils % 65.9 44.4-80 Corrected [place] % .1 % [facility] (Lab): [address] [place] [address] Normal Lymphocyte% 23.4 10.0-50 Final [place] % .0 % [facility] (Lab): [address] [place] [address] Normal [place] % 6.0 3.6-12. Final [place] % 04 % [facility] (Lab): [address] [place] [address] Normal Eos % 3.1 0.0-5.4 Final [place] % 1 % [facility] (Lab): [address] [place] [address] High Basophil % 1.6 0.0-0.7 Final [place] % 9 % [facility] (Lab): [address] [place] [address] 01/01/2019 Differential Normal Neutrophils Incomplete [place] Panel, Blood [facility] (Lab): [address] [place] [address] Normal Lymphocyte Incomplete [place] [facility] (Lab): [address] [place] [address] Normal Monocyte Incomplete [place] [facility] (Lab): [address] [place] [address] Normal Platelet Incomplete [place] Estimate [facility] (Lab): [address] [place] [address] Normal Platelet Incomplete [place] Morphology [facility] (Lab): [address] [place] [address] 01/01/2019 Microalbumin, Normal Microalbumin <12. 0-20 Final [place] Urine Random 0 mg/L [facility] mg/L [facility] (Lab): [address] [place] [address] 01/01/2019 CMP, Serum or High Glucose 284 82-115 Final [place] Plasma mg/d mg/dL [facility] (Lab): [address] [place] [address] Normal Blood Urea 17 8-23 Final [place] Nitrogen mg/d mg/dL [facility] (Lab): [address] [place] [address] Low Osmolality 277 280-300 Final [place] Calculated, [facility] (Lab): [address] [place] [address] Normal Creatinine 0.8 0.50-0. Final [place] mg/d 90 Regional L mg/dL [facility] (Lab): [address] [place] [address] Normal Glomerular >60. Final [place] Filtration Rate 00 [facility] (Lab): [address] [place] [address] High BUN/creatinine 21.3 12-20 Final [place] Ratio [facility] (Lab): [address] [place] [address] Low Sodium Level 132 135-145 Final [place] mmol mmol/L [facility] (Lab): [address] [place] [address] High Potassium 5.5 3.5-5.2 Final [place] Level mmol mmol/L [facility] (Lab): [address] [place] [address] Low Chloride Level 95 98-108 Final [place] mmol mmol/L [facility] (Lab): [address] [place] [address] Normal Co2 22 21-32 Final [place] mmol mmol/L [facility] (Lab): [address] [place] [address] High Anion Gap 20.5 12-20 Final [place] mEq/ mEq/L [facility] (Lab): [address] [place] [address] Normal Calcium Level 9.5 8.8-10. Final [place] mg/d 2 mg/dL [facility] (Lab): [address] [place] [address] Normal Total Protein 6.8 6.6-8.7 Final [place] g/dL g/dL [facility] (Lab): [address] [place] [address] Normal Albumin 4.3 3.5-5.2 Final [place] g/dL g/dL [facility] (Lab): [address] [place] [address] Normal Globulin 2.5 Final [place] gm/d [facility] (Lab): [address] [place] [address] Normal A/g Ratio 1.7 >1.0 Final [place] [facility] (Lab): [address] [place] [address] Normal Bilirubin,tota 0.8 0.0-1.2 Final [place] l mg/d mg/dL [facility] (Lab): [address] [place] [address] Normal AST/SGOT 31 15-32 Final [place] U/L U/L [facility] (Lab): [address] [place] [address] High ALT/SGPT 44 0-33 Final [place] U/L U/L [facility] (Lab): [address] [place] [address] High Alkaline 131 35-105 Final [place] Phosphatase, U/L U/L [facility] (Lab): [address] [place] [address] 01/01/2019 Lipid Panel, Low Cholesterol 117 150-200 Final [place] Serum Level mg/d mg/dL [facility] (Lab): [address] [place] [address] Normal Triglycerides 74 <150 Final [place] Level mg/d mg/dL [facility] (Lab): [address] [place] [address] Low HDL 63 >65 Final [place] Cholesterol mg/d mg/dL [facility] (Lab): [address] [place] [address] Normal LDL 55 <100 Final [place] Cholesterol mg/d mg/dL [facility] (Lab): [address] [place] [address] Normal Cholesterol 1.85 Final [place] Risk Ratio [address] [place] [address] (Lab): [address] [place] [address] Allergies Code Code System Name Reaction Severity [...] Name Performed by Tonsillectomy Information not available 01/11/2019 LDCT, Chest, for Lung Cancer [facility] ( Scheduling) Screening [address] [place] [address] (Work [address]) Vaccine List Vaccine Type influenza, high dose seasonal 06/13/20180.5 mL Social History Smoking Status Current Every Day Smoker Past Encounters 01/28/2019 Chronic Pancreatitis Marcos Cage MD: [address], [address], [place] [address], Ph. [phone] 01/07/2019 Chronic Pancreatitis; Chronic Obstructive Lung Disease; Smoker Marcos Cage MD: [address], [address], [place] [address], Ph. History of Present Illness Note: CC chronic panceratitis<div>hpi pt in constant pain is seeing GI doctor and to have EGD</div><div>15 min consultation</div> Review of Systems: ROS as noted in the HPI Review of Systems None recorded. Physical Exam Notes: consultation
--- OUTSIDE RECORDS SUMMARY | 2019-05-05 19:39 | XMS REPORT | Summary of Care ---
:1945 Author Organization [facility] Address [address], [place] [address]- Encounter HQ Encntr_alias([facility]) [id number] Date(s): 05/01/18 - 05/01/18 [facility] [address] [place] [address]- Encounter Diagnosis Nausea with vomiting, unspecified (Final) - 05/05/18 Discharge Disposition: Home or Self Care Attending Physician: Francisco J Wharton MD Admitting Physician: Francisco J Wharton MD Referring Physician: Francisco J Wharton MD Vital Signs No data available for this section Problem List No data available for this section Allergies, Adverse Reactions, Alerts No data available for this section Medications No data available for this section Results No data available for this section Immunizations No data available for this section Procedures No data available for this section Social History No data available for this section Assessment and Plan No data available for this section
--- OUTSIDE RECORDS SUMMARY | 2019-05-05 19:39 | XMS REPORT | Summary of Care ---
:1945 Author Organization [facility] Address [address] [place] [address] Encounter [facility] [address] Date(s): 05/14/18 - 05/14/18 [facility] [address] [place] [address]- Discharge Diagnosis: Personal history of colonic polyps Discharge Disposition: Discharged to Home or Self Care Attending Physician: Kamron Morel MD Admitting Physician: Kamron Morel MD Vital Signs Most recent to oldest 1 2 3 [Reference Range]: Temperature Oral [35.8-37.3 36.5 DegC DegC] (05/14/18 7:33 AM) Temperature Tympanic 36.8 DegC [36.6-38.1 DegC] (05/14/18 9:40 AM) Temperature Tympanic 98.24 Fahrenheit (05/14/18 9:40 AM) Peripheral Pulse Rate [55-105 64 bpm 61 bpm bpm] (05/14/18 10:39 AM) (05/14/18 7:33 AM) Heart Rate Monitored [60-100 62 bpm 67 bpm 77 bpm bpm] (05/14/18 10:00 AM) (05/14/18 9:50 AM) (05/14/18 9:40 AM) Respiratory Rate [12-20] 13 12 13 (05/14/18 10:39 AM) (05/14/18 10:00 AM) (05/14/18 9:50 AM) SpO2 [90-100 %] 99 % 98 % 96 % (05/14/18 10:39 AM) (05/14/18 10:00 AM) (05/14/18 9:50 AM) Blood Pressure [110-120/65-85 130/78 mmHg 144/73 mmHg 146/76 mmHg mmHg] *HI* *HI* *HI* (05/14/18 10:39 AM) (05/14/18 10:00 AM) (05/14/18 9:50 AM) Mean Arterial Pressure, Cuff 96.7 mmHg 99.3 mmHg 68.7 mmHg (05/14/18 10:00 AM) (05/14/18 9:50 AM) (05/14/18 9:40 AM) Height 157.48 cm 157.48 cm (05/14/18 7:33 AM) (05/11/18 7:35 AM) Height/Length Dosing 157.48 cm 157.48 cm (05/14/18 7:33 AM) (05/11/18 7:35 AM) Height Inches 62 in 62 in (05/14/18 7:33 AM) (05/11/18 7:35 AM) Weight 49 kg 48.98 kg (05/14/18 7:33 AM) (05/11/18 7:35 AM) Weight Dosing 49 kg 48.98 kg (05/14/18 7:33 AM) (05/11/18 7:35 AM) Weight Pounds 108 lb 108 lb (05/14/18 7:33 AM) (05/11/18 7:35 AM) Body Mass Index 19.76 kg/m2 19.75 kg/m2 (05/14/18 7:33 AM) (05/11/18 7:35 AM) Problem List Condition Effective Dates Status Health Status Informant Asthma(Confirmed) Active Cholesterol(Confirmed) Active Diabetes mellitus(Confirmed)1 Active Heart murmur(Confirmed)2 Active Hypertension(Confirmed) Active Hypothyroid(Confirmed) Active Polyp colon(Confirmed) Resolved 1TYPE II Insulin [id number] problems Allergies, Adverse Reactions, Alerts No Known Allergies Medications albuterol 2.5 mg/3 mL (0.083%) inhalation solution mg mL, NEB, q6hr, 0 Refill(s) Start Date: 05/11/18 Stop Date: 05/25/18 Status: OrderedamLODIPine 5 mg oral tablet mg tabs, Oral, Daily, 0 Refill(s), HTN Start Date: 05/11/18 Stop Date: 05/25/18 Status: Orderedaspirin 81 mg oral delayed release capsule =1 caps, Oral, Daily, # 120 caps, 0 Refill(s), supplement Start Date: 05/11/18 Stop Date: 05/25/18 Status: Orderedatorvastatin 40 mg oral tablet 40 mg=1 tabs, Oral, Daily, 0 Refill(s), cholesterol Start Date: 05/11/18 Stop Date: 05/25/18 Status: Orderedbarium sulfate 2% oral suspension 450 mL, Susp, Oral, Once, first dose 05/14/18 12:00:00 CDT, stop date 05/14/18 12:00:00 CDT Start Date: 05/14/18 Stop Date: 05/14/18 Status: Completedcarvedilol 25 mg oral tablet 25 mg=1 tabs, Oral, BID, 0 Refill(s), HTN Start Date: 05/11/18 Stop Date: 05/25/18 Status: OrderedHumaLOG 100 units/mL injectable solution Subcutaneous, 0 Refill(s), DM Start Date: 05/11/18 Stop Date: 05/25/18 Status: OrderedHumuLIN N See Instructions, Subcutaneous 10 units in AM, 0 Refill(s), DM Start Date: 05/11/18 Status: OrderedLevothroid 100 mcg (0.1 mg) oral tablet 100 mcg=1 tabs, Oral, Daily, 0 Refill(s), thyroid Start Date: 05/11/18 Stop Date: 05/25/18 Status: OrderedLidocaine 2% 0.2 mL IV Start [[place]] 0.2 mL, Injection, Subcutaneous, Once PRN for other (see comment), first dose 7:35:00 CDT Start Date: 05/14/18 Stop Date: 05/14/18 Status: Completedlosartan 100 mg oral tablet mg tabs, Oral, Daily, 0 Refill(s), HTN Start Date: 05/11/18 Stop Date: 05/25/18 Status: OrderedLR 1,000 mL 1,000 mL, IV, 30 mL/hr, start date 05/14/18 7:35:00 CDT Start Date: 05/14/18 Stop Date: 05/14/18 Status: DiscontinuedLR 1,000 mL 1,000 mL, IV, 75 mL/hr, start date 05/14/18 9:50:00 CDT Start Date: 05/14/18 Stop Date: 05/14/18 Status: DiscontinuedMisc Medication 500 mL, Soln-IV, IV, Once, first dose 05/14/18 9:46:00 CDT, stop date 05/14/18 9 :46:00 CDT Start Date: 05/14/18 Stop Date: 05/14/18 Status: CompletedOptiray 300 100 mL, Injection, IV Push, Once, first dose 05/14/18 12:00:00 CDT, stop date 12:00:00 CDT Start Date: 05/14/18 Stop Date: 05/14/18 Status: Completedpropofol 200 mg=20 mL, Emulsion, IV, Once, first dose 05/14/18 9:24:00 CDT, stop date 9:24:00 CDT Start Date: 05/14/18 Stop Date: 05/14/18 Status: Completedpropofol 100 mg=10 mL, Emulsion, IV, Once, first dose 05/14/18 9:39:00 CDT, stop date 9:39:00 CDT Start Date: 05/14/18 Stop Date: 05/14/18 Status: CompletedSaline Lock Flush 10 mL, Soln, IV Push, As Indicated PRN for flush, first dose 05/14/18 11:34:00 CDT Start Date: 05/14/18 Stop Date: 05/14/18 Status: DiscontinuedSaline Lock Flush 10 mL, Soln, IV Push, As Indicated PRN for flush, first dose 05/14/18 9:50:00 CDT Start Date: 05/14/18 Stop Date: 05/14/18 Status: Discontinued Results LABORATORY Most recent to oldest [Reference Range]: 1 2 Blood Glucose, Capillary [74-106 mg/dL] 177 mg/dL 246 mg/dL *HI* *HI* (05/14/18 9:50 AM) (05/14/18 7:44 AM) Calculate GFR [59-120 mg/mL] 106 mg/mL (05/14/18 11:41 AM) Radiology Reports Exam Date Time Procedure Performing Provider Status 05/14/18 11:[address] Abdomen and Pelvis w/ Alix Vance; Auth (Verified) Contrast [id number] Notes:(CT Abdomen and Pelvis w/ Contrast 44799) Reason For Exam: Z86.010FINAL REPORT EXAMINATION: CT of the abdomen and pelvis with contrast. HISTORY: Abdominal pain; history of partial colon resection in 2016 and hernia repair in 1982 TECHNIQUE: Multiple contiguous transaxial CT images of the abdomen and pelvis are obtained following the intravenous administration of contrast. Coronal and sagittal reformatted images are performed. This exam was performed according to our departmental dose-optimization program which includes automated exposure control, adjustment of the mA and/or kV according to patient size and/or use of iterative reconstruction technique. DLP -- 738 mGy-cm COMPARISON: There are no comparisons. FINDINGS: Lung Bases: No pneumonic consolidation, pleural effusion, or pneumothorax. Heart: The heart size is within normal limits without pericardial effusion. Liver: There are multiple calcifications scattered within the liver. There is no focal intrahepatic lesion. Biliary: No intra or extrahepatic biliary ductal dilatation. Gallbladder: Normal. Spleen: There are multiple calcifications scattered within the spleen consistent with old granulomatous disease. The spleen is otherwise unremarkable. Pancreas: There is diffuse atrophy of the pancreatic parenchyma and there is mild diffuse dilatation of the pancreatic duct, but no distal obstructing lesion identified. There are scattered calcifications within the pancreas and possible small calculi within the pancreatic duct. Adrenal Glands: Normal. Kidneys: Normal without hydronephrosis. Urinary Bladder: Normal. Reproductive Organs: There is a small calcified fibroid within the uterus. The reproductive organs are otherwise grossly normal. Body Wall: Unremarkable. Gastrointestinal tract: Evaluation of the bowel is slightly limited secondary to the paucity of intraperitoneal fat. Anastomotic suture is noted near the junction of the ascending colon with the transverse colon in keeping with the patient's history of partial colon resection. The small and large bowel are normal in caliber without evidence of acute inflammation or obstruction. The appendix is normal. Free Fluid and Free Gas: No free intraperitoneal fluid or gas. Lymph Nodes: No abdominal or pelvic lymphadenopathy. Vasculature: There is atherosclerotic calcification of the aorta. Osseous Structures: No suspicious osteolytic or osteoblastic lesions. There is a Schmorl's node involving the superior endplate of L3. IMPRESSION: 1. No CT evidence of acute intra-abdominal or intrapelvic pathologic process. There is no bowel obstruction, free intraperitoneal fluid, or free intraperitoneal gas. The appendix is normal. 2. Anastomotic suture noted near the junction of the ascending colon with the transverse colon in keeping with the patient's history of partial colon resection. 3. Diffuse atrophy of the pancreatic parenchyma and mild diffuse dilatation of the pancreatic duct, but no distal obstructing lesion identified. There are scattered calcifications within the pancreas and possible small calculi within the pancreatic duct. Overall findings may represent sequelae of chronic pancreatitis. Comparison with patient's prior imaging would be useful to assess the acuity or chronicity of these findings. Electronically signed by: Rahul Blancas MD 05/14/2018 3:24 PM CDT Immunizations No data available for this section Procedures Procedure Date Related Diagnosis Body Site COLONOSCOPY FLEXIBLE; WITH BIOPSY; SINGLE OR 05/14/18 MULTIPLE 25395 (Other)1 Colonoscopy 2014 colon resection2 2005 ankle surgery Hernia repair Tonsillectomy Tubal ligation 1auto-populated from documented surgical [id number] to pre-cancer polyp Social History Social History Type Response Smoking Status Current every day smoker; Type: Cigarettes; Tobacco use per day : 20; Assessment and Plan No data available for this section
--- OUTSIDE RECORDS SUMMARY | 2019-05-05 19:39 | XMS REPORT | Encounter Summary ---
:1945 Author Reason for Visit Follow Up Results Instructions 1. Type II diabetes mellitus uncontrolled type 2 diabetes: care instructions microalbumin, urine hemoglobin A1c, QN, blood CMP, serum or plasma CBC w/ auto diff 2. Chronic obstructive lung disease 3. Benign essential hypertension high blood pressure: care instructions learning about high blood pressure 4. Mixed hyperlipidemia lipid panel, serum 5. Chronic pancreatitis pancreatitis: care instructions Discussion Note: None recorded. Plan of Care Reminders Provider Appointments Follow up Marcos Cage MD 01/07/2019 10:15AM Lab Microalbumin, [facility] Urine 12/31/2018 [facility] (Lab) Hemoglobin [facility] a1C, QN, Blood 12/31/2018 [facility] (Lab) CMP, Serum or [facility] Plasma 12/31/2018 [facility] (Lab) CBC W/ Auto [facility] Diff 12/31/2018 [facility] (Lab) Lipid Panel, [facility] Serum 12/31/2018 [facility] (Lab) Referral None recorded. Procedures None recorded. Surgeries [...] Height Weight BMI Blood Pressure 62 in 122 lbs 22.3 kg/m2 137/72 mm[Hg] Lab Results Date Name Specimen Result Interpretation Description Value Range Status Address 10/05/2018 CBC W/ Auto Normal White Blood 10.8 4.0-11.5 Final [facility] Diff Count K/uL K/uL [facility] (Lab): [address] [place] [address] Normal Red Blood 4.13 3.80-5.20 Final [facility] Count M/uL M/uL [facility] (Lab): [address] [place] [address] Normal Hemoglobin 13.1 10.5-15.7 Final [facility] g/dL g/dL [facility] (Lab): [address] [place] [address] Normal Hematocrit 39.7 34.0-50.0 Final [facility] % % [facility] (Lab): [address] [place] [address] Normal Mean 96.1 78-98 fL Final [facility] Corpuscular fL [facility] Volume [facility] (Lab): [address] [place] [address] Normal Mean 31.7 26.2-33.4 Final [facility] Corpuscular pg pg [facility] Hemoglobin [facility] (Lab): [address] [place] [address] Normal Mean 33.0 31.5-36.2 Final [facility] Corpuscular HGB g/dL g/dL [facility] Conc [facility] (Lab): [address] [place] [address] Normal Red Cell 12.5 11.5-15.5 Final [facility] Distribution % % [facility] Width [facility] (Lab): [address] [place] [address] Normal Platelet Count 250 137-338 Final [facility] K/uL K/uL [facility] (Lab): [address] [place] [address] Low Mean Platelet 7.7 8.4-11.8 Final [facility] Volume fL fL [facility] (Lab): [address] [place] [address] Normal Neutrophils % 66.8 44.4-80.1 Corrected [facility] % % [facility] (Lab): [address] [place] [address] Normal Lymphocyte% 23.0 10.0-50.0 Final [facility] % % [facility] (Lab): [address] [place] [address] Normal C[place]ay % 6.7 % 3.6-12.04 Final [facility] % [facility] (Lab): [address] [place] [address] Normal Eos % 2.3 % 0.0-5.41 Final [facility] % [facility] (Lab): [address] [place] [address] High Basophil % 1.1 % 0.0-0.79 Final [facility] % [facility] (Lab): [address] [place] [address] 10/05/2018 Differential Normal Neutrophils Incomplete [facility] Blood [facility] (Lab): [address] [place] [address] Normal Band Incomplete [facility] (Lab): [address] [place] [address] Normal Lymphocyte Incomplete [facility] (Lab): [address] [place] [address] Normal Monocyte Incomplete [facility] (Lab): [address] [place] [address] Normal Eosinophil Incomplete [facility] (Lab): [address] [place] [address] Normal Platelet Incomplete [facility] Estimate [facility] (Lab): [address] [place] [address] Normal Platelet Incomplete [facility] Morphology [facility] (Lab): [address] [place] [address] Normal Poikilocytosis [facility] (Lab): [address] [place] [address] Normal Smudge Cells [facility] (Lab): [address] [place] [address] 10/05/2018 Microalbumin, Normal Microalbumin <12.0 0-20 mg/L Final [facility] Urine Random mg/L [facility] (Lab): [address] [place] [address] 10/05/2018 Hepatic Normal Total Protein 7.0 6.6-8.7 Final [facility] Function g/dL g/dL [facility] Serum [facility] (Lab): [address] [place] [address] Normal Albumin 4.6 3.5-5.2 Final [facility] g/dL g/dL [facility] (Lab): [address] [place] [address] Normal Bilirubin,tota 0.7 0.0-1.2 Final [facility] l mg/dL mg/dL [facility] (Lab): [address] [place] [address] Normal Bilirubin,dire <0.20 0.0-0.[address] mg/dL mg/dL [facility] (Lab): [address] [place] [address] High AST/SGOT 36 15-32 U/L Final [facility] U/L [facility] (Lab): [address] [place] [address] High ALT/SGPT 39 0-33 U/L Final [facility] U/L [facility] (Lab): [address] [place] [address] Alkaline 124 35-105 Final [facility] Phosphatase, U/L U/L [facility] Total [facility] (Lab): [address] [place] [address] 10/05/2018 Amylase, Serum Normal Amylase Level 31 28-100 Final [facility] or Plasma U/L U/L [facility] (Lab): [address] [place] [address] 10/05/2018 Lipase, Serum Low Lipase 12 13-60 U/L Final [facility] or Plasma U/L [facility] (Lab): [address] [place] [address] 10/05/2018 Lipid Panel, Low Cholesterol 127 150-200 Final [facility] Serum Level mg/dL mg/dL [facility] (Lab): [address] [place] [address] Normal Triglycerides 57 <150 Final [facility] Level mg/dL mg/dL [facility] (Lab): [address] [place] [address] Normal HDL 68 >65 mg/dL Final [facility] Cholesterol mg/dL [facility] (Lab): [address] [place] [address] Normal LDL 57 <100 Final [facility] Cholesterol mg/dL mg/dL [facility] Direct [facility] (Lab): [address] [place] [address] Normal Cholesterol 1.867 Final [facility] Risk Ratio [facility] (Lab): [address] [place] [address] 10/05/2018 Vitamin B12 + Normal Vitamin B12 591.5 211-946 Final [facility] Folate, Serum pg/mL pg/mL [facility] or Blood [facility] (Lab): [address] [place] [address] Normal Folate >20 4.78-24.2 Final [facility] NG/mL NG/mL [facility] (Lab): [address] [place] [address] 10/05/2018 Vitamin D, High Vit D 25 51.45 6.4-49.5 Final [facility] 25-Hydroxy, Hydroxy NG/mL NG/mL [facility] ([facility]): [address] [place] [address] 10/05/2018 Hemoglobin High Hemoglobin a1C 8.2 % 4.0-6.0 % Final [facility] a1C, QN, Blood [facility] (Lab): [address] [place] [address] 10/05/2018 Fecal Fat, Fat 72H Final [facility] Quantitative, Stl-mrate [facility] (Lab): [address] [place] [address] Allergies Code Code System Name Reaction Severity [...] Steatorrhea Active 04/09/2018 Chronic Pancreatitis Active 07/10/2018 Procedures Date Name Performed by Tonsillectomy Information not available Vaccine List Vaccine Type influenza, high dose seasonal 06/13/20180.5 mL Social History Smoking Status Current Every Day Smoker Past Encounters 10/10/2018 Type II Diabetes Mellitus Uncontrolled; Chronic Obstructive Lung Disease; Benign Essential Hypertension; Mixed Hyperlipidemia; Chronic Pancreatitis Marcos Cage MD: [address] [place] [address], [address], [place] [address], Ph. [phone] History of Present Illness Note: Here for reg visit<div>ros</div><div>gen doing well some hypoglycemic spells</div><div>cv neg</div><div> resp neg</div><div>gi chronic pancreatitis pain</div><div& gt;m/s neg</div>Review of Systems: ROS as noted in the HPI Review of Systems None recorded. Physical Exam Dr. Cage Brief Adult Exam - M/F Reported By: Patient Constitutional: General Appearance: healthy-appearing, well-nourished, well-developed. Level of Distress: NAD. Ambulation: ambulating normally Neck: Neck: supple, trachea midline, no masses, FROM. Lymph Nodes: no cervical LAD, no supraclavicular LAD Lungs: Auscultation: breath sounds normal, good air movement, CTA except as noted, no wheezing, no rales/crackles, no rhonchi Cardiovascular: Heart Auscultation: RRR, no rubs, no gallops
--- OUTSIDE RECORDS SUMMARY | 2019-05-05 19:40 | XMS REPORT | Encounter Summary ---
:1945 Author Reason for Visit Follow Up Visit Instructions 1. Type II diabetes mellitus uncontrolled type 2 diabetes: care instructions 2. Chronic pancreatitis pancreatitis: care instructions Discussion Note: None recorded. Plan of Care Reminders Provider Appointments Follow up 04/09/2019 Marcos Cage MD 10:30AM Lab None recorded. Referral None recorded. Procedures [...] subcutaneous route in the morning. Imodium A-D levothyroxine 100 mcg tablet TAKE 1 TABLET DAILY losartan 100 mg tablet Take 1 tablet every day by oral route. meloxicam 15 mg tablet Take 1 tablet every day by oral route. pantoprazole 40 mg tablet,delayed release Suprep Bowel Prep Kit 17.5 gram-3.13 gram-1.6 gram oral solution tramadol 50 mg tablet Take 1 tablet twice a day by oral route. take as needed for pain Travatan Z 0.004 % eye drops Vitamin D3 Medications Administered None recorded. Vitals Height Weight BMI Blood Pressure 62 in 117 lbs 21.4 kg/m2 168/79 mm[Hg] Lab Results Date Name Specimen Result Interpretation Description Value Range Status Address 02/03/2019 CBC W/ Auto High White Blood 15.2 4.0-11.5 Final [place] Diff Count K/uL K/uL [facility] (Lab): [address] [place] [address] Normal Red Blood 4.43 3.80-5.20 Final [place] Count M/uL M/uL [facility] (Lab): [address] [place] [address] Normal Hemoglobin 13.4 10.5-15.7 Final [place] g/dL g/dL [facility] (Lab): [address] [place] [address] Normal Hematocrit 39.7 34.0-50.0 Final [place] % % [facility] (Lab): [address] [place] [address] Normal Mean 89.5 78-98 fL Final [place] Corpuscular fL [facility] (Lab): [address] [place] [address] Normal Mean 30.1 26.2-33.4 Final [place] Corpuscular pg pg [facility] (Lab): [address] [place] [address] Normal Mean 33.7 31.5-36.2 Final [place] Corpuscular HGB g/dL g/dL [facility] Conc [facility] (Lab): [address] [place] [address] Normal Red Cell 12.1 11.5-15.5 Final [place] Distribution % % [facility] (Lab): [address] [place] [address] Normal Platelet Count 271 137-338 Final [place] K/uL K/uL [facility] (Lab): [address] [place] [address] Low Mean Platelet 7.8 8.4-11.8 Final [place] Volume fL fL [facility] (Lab): [address] [place] [address] Normal Neutrophils % 67.4 44.4-80.1 Corrected [place] % % [facility] (Lab): [address] [place] [address] Normal Lymphocyte% 18.8 10.0-50.0 Final [place] % % [facility] (Lab): [address] [place] [address] Normal [place] % 8.9 % 3.6-12.0 Final [place] % [facility] (Lab): [address] [place] [address] Normal Eos % 3.4 % 0.0-5.4 % Final [place]ck[place] [facility] (Lab): [address] [place] [address] High Basophil % 1.5 % 0.0-0.79 Final [place] % [facility] (Lab): [address] [place] [address] 02/03/2019 Differential Normal Neutrophils [facility] Panel Blood [facility] (Lab): [address] [place] [address] Normal Band [facility] (Lab): [address] [place] [address] Normal Lymphocyte [facility] (Lab): [address] [place] [address] Normal Atypical Lymph [facility] (Lab): [address] [place] [address] Normal Monocyte [facility] (Lab): [address] [place] [address] Normal Eosinophil [facility] (Lab): [address] [place] [address] Normal Basophil [facility] (Lab): [address] [place] [address] Normal Metamyelocyte [facility] (Lab): [address] [place] [address] Normal Myelocyte [facility] (Lab): [address] [place] [address] Normal Platelet [facility] Estimate [facility] (Lab): [address] [place] [address] Normal Platelet [facility] Morphology [facility] (Lab): [address] [place] [address] Normal Poikilocytosis [facility] (Lab): [address] [place] [address] Normal Anisocytosis [facility] (Lab): [address] [place] [address] Normal Macrocytosis [facility] (Lab): [address] [place] [address] Normal Toxic Incomplete [place] Granulation [facility] (Lab): [address] [place] [address] Normal Hypersegmented [facility] Polys [facility] (Lab): [address] [place] [address] Normal Smudge Cells [facility] (Lab): [address] [place] [address] 02/03/2019 CMP, Serum or CRITICAL Glucose 46 82-115 Final [place] Plasma LOW mg/dL mg/dL [facility] (Lab): [address] [place] [address] Normal Blood Urea 17 8-23 Final [place] Nitrogen mg/dL mg/dL [facility] (Lab): [address] [place] [address] Low Osmolality 265 280-300 Final [facility] [address] [place] [address] Normal Creatinine 0.8 0.50-0.90 Final [place] mg/dL mg/dL [facility] (Lab): [address] [place] [address] Normal Glomerular >60.0 Final [place] Filtration Rate 0 [facility] (Lab): [address] [place] [address] High BUN/creatinine 21.3 12-20 Final [place] Ratio [facility] (Lab): [address] [place] [address] Low Sodium Level 133 135-145 Final [place] mmol/ mmol/L [facility] (Lab): [address] [place] [address] Normal Potassium 4.5 3.5-5.2 Final [place] Level mmol/ mmol/L [facility] (Lab): [address] [place] [address] Low Chloride Level 95 98-108 Final [place] mmol/ mmol/L [facility] (Lab): [address] [place] [address] Normal Co2 26 21-32 Final [place] mmol/ mmol/L [facility] (Lab): [address] [place] [address] Normal Anion Gap 16.5 12-20 Final [place] mEq/L mEq/L [facility] (Lab): [address] [place] [address] Normal Calcium Level 9.6 8.8-10.2 Final [place] mg/dL mg/dL [facility] (Lab): [address] [place] [address] Normal Total Protein 7.0 6.6-8.7 Final [place] g/dL g/dL [facility] (Lab): [address] [place] [address] Normal Albumin 4.6 3.5-5.2 Final [place] g/dL g/dL [facility] (Lab): [address] [place] [address] Normal Globulin 2.4 Final [place] gm/dL [facility] (Lab): [address] [place] [address] Normal A/g Ratio 1.9 >1.0 Final [place]ck[place] [facility] (Lab): [address] [place] [address] Normal Bilirubin,tota 0.6 0.0-1.2 Final [place] l mg/dL mg/dL [facility] (Lab): [address] [place] [address] Normal AST/SGOT 19 15-32 U/L Final [place] U/L [facility] (Lab): [address] [place] [address] Normal ALT/SGPT 18 0-33 U/L Final [place] U/L [facility] (Lab): [address] [place] [address] High Alkaline 124 35-105 Final [place] Phosphatase, U/L U/L [facility] (Lab): [address] [place] [address] 01/07/2019 Amylase, Low Amylase Level 23 28-100 Final [place] Serum or U/L U/L [facility] Plasma [facility] (Lab): [address] [place] [address] 01/07/2019 Lipase, Serum Low Lipase 8 U/L 13-60 U/L Final [place] or Plasma [facility] (Lab): [address] [place] [address] Allergies Code Code System Name Reaction Severity [...] available 01/11/2019 LDCT, Chest, for Lung Cancer [facility] ( Scheduling) Screening [address] [place] [address] (Work Place) Vaccine List Vaccine Type influenza, high dose seasonal 06/13/20180.5 mL Social History Smoking Status Current Every Day Smoker Past Encounters 02/06/2019 Type II Diabetes Mellitus Uncontrolled; Chronic Pancreatitis Marcos Cage MD: [address], [address], [place] [address], Ph. 01/28/2019 Chronic Pancreatitis Marcos Cage MD: [address], [address], [place] [address], Ph. [phone] 01/07/2019 Chronic Pancreatitis; Chronic Obstructive Lung Disease; Smoker Marcos Cage MD: [address], [address], [place] [address], Ph. [phone] History of Present Illness Note: CC f/up to ED for hypoglycemic attack after too much insulin<div> hpi was sent to ED with bld sugar 30s recovered and sent home</div><div >CC persistent pain from chronic pancreatitis</div><div>hpi has appoitment today</div>Review of Systems: ROS as noted in the HPI Review of Systems None recorded. Physical Exam Notes: consult
--- OUTSIDE RECORDS SUMMARY | 2019-05-05 19:40 | XMS REPORT | Continuity of Care Document ---
:1945 Author Organization [facility] Address [address] [place] [address] Phone Unavailable Care Team Providers Name Role Phone ORI MEEK MD Primary Care Physician Insurance Providers Guarantor Kelly Roberts Address [address] [place] [address] Email [email or web address] [facility] Policy Number [id number] Subscriber's Name Kelly Roberts Relationship Self / Same As Patient Group Number [id number] Group Name NA Advance Directives Directive Response Recorded Date/Time Advance Directive on File No 02/04/19 1:12am Patient/Family Given Education Material R/T Y - 02/04/19...MK 02/04/19 2: 16am Directives? Problems No problem information available. Medications No medication information available. Social History Social History Problem Response Recorded Date/Time Onset Date Status Hx Physical Abuse No 02/04/2019 1:12am Not Applicable Not Applicable Smoking Status Start Date Stop Date Current every day smoker Hospital Discharge Instructions No hospital discharge instruction information available. Plan of Care Discharge Date 02/04/19 4:33am Instructions/Education Provided Hypoglycemia, [id number] Forms Provided Prescription Opioid Use Portal Welcome Letter Prescriptions See Medication Section Referrals ORI MEEK MD Address: [address] [place] [address] Additional Instructions/Education FOLLOW UP WITH PRIMARY CARE DOCTOR IN 2-3 DAYS. CHECK BLOOD SUGAR UPON BEING SYMPTOMATIC. CHECK BLOOD SUGAR PRIOR TO BREAKFAST THIS MORNING. RETURN TO ER FOR ANY FURTHER EMERGENCIES. Functional Status No functional status information available. Allergies, Adverse Reactions, Alerts No known allergies. Immunizations No immunization information available. Vital Signs Acute Vital Signs Vital Response Date/Time Blood Pressure 120/52 mm Hg 02/04/2019 4:41am Pulse Pulse Rate (adult) 56 beats per minute (60 - 100) 02/04/2019 4:41am Respiratory Rate 18 breaths per minute (10 - 24) 02/04/2019 4:41am Temperature Source Tympanic 02/04/2019 4:41am Height 5 ft 3 in 02/04/2019 1:12am Weight 115 lb 02/04/2019 1:12am Body Mass Index 20.4 kg/m^2 02/04/2019 1:12am Results Laboratory Results Test Name Result Units Flags Reference Collection Result Comments Date/Time Date/Time Vitamin B12 Level 872.8 pg/mL 211-946 12/19/2018 12/19/2018 10:30am 12:47pm Vitamin A Level 74.4 12/19/2018 12/25/2018 10:30am 10:57am 1,25 Dihydroxy 41.9 pg/mL 19.9-79.3 12/19/2018 12/21/2018 Performed at : - [facility] [place] Vitamin D3 10:30am 2:36pm [address], [place] [id number] Optical Technician: Chapin Negron MD, Phone: [phone] Folate Hemolysate 587.2 ng/mL Not Estab. 12/19/2018 12/20/2018 10:30am 3:14pm Red Blood Cell 1450 ng/mL >498 12/19/2018 12/20/2018 Performed at: - [facility] [place] Folate 10:30am 3:14pm [address] [place], [place] [id number] Optical Technician: Zenon Bowen MD, Phone: [phone] Hematocrit 40.5 % 34.0-46.6 12/19/2018 12/20/2018 10:30am 3:14pm Zinc Level 522 ug/dL 440-860 12/19/2018 12/21/2018 This test was developed and its performance characteristics 10:30am 2:36pm determined by [facility]. It has not been cleared or approved by the Food and Drug Administration. Performed at: [address] [id number] Optical Technician: Chapin Negron MD, Phone: [phone] Hemoglobin A1c 8.6 % H 4.0-6.0 01/01/2019 01/01/2019 9:43am 11:09am Urine Microalbumin < 12.0 mg/L 0-20 01/01/2019 01/01/2019 9:43am 11:21am Cholesterol Level 117 mg/dL L 150-200 01/01/2019 01/01/2019 9:43am 11:21am Triglycerides 74 mg/dL <150 01/01/2019 01/01/2019 Level 9:43am 11:21am HDL Cholesterol 63 mg/dL L >65 01/01/2019 01/01/2019 HDL EXPECTED VALUES : 9:43am 11:21am FEMALES: >65 mg/dL NO RISK 45-65 mg/dL MODERATE RISK <45 mg/dL HIGH RISK MALES: >55 mg/dL NO RISK 35-55 mg/dL MODERATE RISK <35 mg/dL HIGH RISK LDL Cholesterol 55 mg/dL <100 01/01/2019 01/01/2019 LDL Expected Values : 9:43am 11:21am Optimal <100 mg/dL Near optimal/above optimal 100-129 mg/dL Borderline high 130-159 mg/dL High 160-189 mg/dL Very high >190 mg/dL Coronary Heart 1.857 01/01/2019 01/01/2019 NATIONAL CHOLESTEROL GUIDELINES Disease Risk Ratio 9:43am 11:21am [facility] ([facility]) guidelines for classificaton, testing and management of cholesterol levels in adults over 20 years of age. This new classification creates three categories of risk for coronary heart disease, regardless of age or sex, according to total and LDL cholesterols levels: Based on total cholesterol level Desirable <200 mg/dl Borderline-high 200-239 mg/dl High >=240 mg/dl Based on cholesterol ratio CHD RISK CHOL/HDL RATIO MALE FEMALE 0.5 x Average 3.4 3.3 1.0 x Average 5.0 4.4 2.0 x Average 9.6 7.1 3.0 x Average 13.5 11.0 Amylase Level 23 U/L L 28-100 01/07/2019 01/07/2019 10:59am 1:27pm Lipase 8 U/L L 13-60 01/07/2019 01/07/2019 10:59am 1:27pm White Blood Count 15.2 K/ul H 4.0-11.5 02/04/2019 02/04/2019 1:45am 1:52am Red Blood Count 4.43 M/ul 3.80-5.20 02/04/2019 02/04/2019 1:45am 1:52am Hemoglobin 13.4 g/dl 10.5-15.7 02/04/2019 02/04/2019 1:45am 1:52am Hematocrit 39.7 % 34.0-50.0 02/04/2019 02/04/2019 1:45am 1:52am Mean Corpuscular 89.5 fl 78-98 02/04/2019 02/04/2019 Volume 1:45am 1:52am Mean Corpuscular 30.1 pg 26.2-33.4 02/04/2019 02/04/2019 Hemoglobin 1:45am 1:52am Mean Corpuscular 33.7 g/dl 31.5-36.2 02/04/2019 02/04/2019 Hemoglobin Concent 1:45am 1:52am Red Cell 12.1 % 11.5-15.5 02/04/2019 02/04/2019 Distribution Width 1:45am 1:52am Platelet Count 271 K/ul 137-338 02/04/2019 02/04/2019 1:45am 1:52am Mean Platelet 7.8 fl L 8.4-11.8 02/04/2019 02/04/2019 Volume 1:45am 1:52am Neutrophils (%) 67.4 % 44.4-80.1 02/04/2019 02/04/2019 (Auto) 1:45am 1:52am Lymphocytes (%) 18.8 % 10.0-50.0 02/04/2019 02/04/2019 (Auto) 1:45am 1:52am Monocytes (%) 8.9 % 3.6-12.0 02/04/2019 02/04/2019 (Auto) 1:45am 1:52am Eosinophils (%) 3.4 % 0.0-5.4 02/04/2019 02/04/2019 (Auto) 1:45am 1:52am Basophils (%) 1.5 % H 0.0-0.79 02/04/2019 02/04/2019 (Auto) 1:45am 1:52am POC Capillary 330 mg/dL H 70.0 - 110 02/04/2019 02/04/2019 Blood Glucose 3:50am 3:52am (Chem) Random Glucose 46 mg/dL L* 82-115 02/04/2019 02/04/2019 1:45am 2:13am Blood Urea 17 mg/dL 8-23 02/04/2019 02/04/2019 Nitrogen 1:45am 2:13am Serum Osmolality 265 L 280-300 02/04/2019 02/04/2019 1:45am 2:13am Creatinine 0.8 mg/dL 0.50-0.90 02/04/2019 02/04/2019 1:45am 2:13am Glomerular > 60.00 02/04/2019 02/04/2019 GFR RESULTS ARE REPORTED IN mL/min/1.73m2. Filtration Rate 1:45am 2:13am Calc Normal GFR: >60mL/min Moderately decreased GFR: 30-59 mL/min Severely decreased GFR: 15-29 mL/min Kidney Failure (or Dialysis): <15 mL/min The calculated eGFR is not valid for patients younger than 18 years or older than 75 years. BUN/Creatinine 21.3 H 12-20 02/04/2019 02/04/2019 Ratio 1:45am 2:13am Sodium Level 133 mmol/L L 135-145 02/04/2019 02/04/2019 1:45am 2:13am Potassium Level 4.5 mmol/L 3.5-5.2 02/04/2019 02/04/2019 1:45am 2:13am Chloride Level 95 mmol/L L 98-108 02/04/2019 02/04/2019 1:45am 2:13am Carbon Dioxide 26 mmol/L 21-32 02/04/2019 02/04/2019 Level 1:45am 2:13am Anion Gap 16.5 mEq/L 12-20 02/04/2019 02/04/2019 1:45am 2:13am Calcium Level 9.6 mg/dL 8.8-10.2 02/04/2019 02/04/2019 1:45am 2:13am Total Protein 7.0 g/dL 6.6-8.7 02/04/2019 02/04/2019 1:45am 2:13am Albumin 4.6 g/dL 3.5-5.2 02/04/2019 02/04/2019 1:45am 2:13am Globulin 2.4 gm/dL 02/04/2019 02/04/2019 1:45am 2:13am Albumin/Globulin 1.9 >1.0 02/04/2019 02/04/2019 Ratio 1:45am 2:13am Total Bilirubin 0.6 mg/dL 0.0-1.2 02/04/2019 02/04/2019 1:45am 2:13am Aspartate Amino 19 U/L 15-32 02/04/2019 02/04/2019 Transf (AST/SGOT) 1:45am 2:13am Alanine 18 U/L 0-33 02/04/2019 02/04/2019 Aminotransferase 1:45am 2:13am (ALT/SGPT) Total Alkaline 124 U/L H 35-105 02/04/2019 02/04/2019 Phosphatase 1:45am 2:13am Procedures Procedure Status Date Provider(s) VIT D 1 25-DIHYDROXY Completed 12/19/18 ASSAY OF FOLIC ACID RBC Completed 12/19/18 VITAMIN B-12 Completed 12/19/18 ASSAY OF VITAMIN A Completed 12/19/18 ASSAY OF ZINC Completed 12/19/18 ROUTINE VENIPUNCTURE Completed 12/19/18 LIPID PANEL Completed 01/01/19 COMPREHEN METABOLIC PANEL Completed 01/01/19 GLYCOSYLATED HEMOGLOBIN TEST Completed 01/01/19 COMPLETE CBC W/AUTO DIFF WBC Completed 01/01/19 UR ALBUMIN QUANTITATIVE Completed 01/01/19 ROUTINE VENIPUNCTURE Completed 01/01/19 ASSAY OF LIPASE Completed 01/07/19 ASSAY OF AMYLASE Completed 01/07/19 ROUTINE VENIPUNCTURE Completed 01/07/19 CT THORAX W/O DYE Completed 01/14/19 CT thorax wo contrast Completed 01/14/19 ORI MEEK MD Encounters Encounter Location Arrival/Admit Date Discharge/Depart Date Attending Provider Departed [place] 02/04/19 1:12am 02/04/19 4:33am [facility] Registered [place] 01/14/19 10:38am ORI MEEK [facility] Registered [place] 01/07/19 10:52am ORI MEEK [facility] Registered [place] 01/01/19 9:28am ORI MEEK [facility] Registered [place] [facility]
--- OUTSIDE RECORDS SUMMARY | 2019-05-05 19:40 | XMS REPORT | Encounter Summary ---
:1945 Author Care Team Providers Name Role Phone Marcos Cage MD Primary Care Provider [phone] Reason for Visit hospital follow up Instructions 1. Malignant tumor of pancreas pancreatic cancer: care instructions amylase + lipase, serum 2. Type II diabetes mellitus uncontrolled type 2 diabetes: care instructions Lantus Solostar U-100 Insulin 100 unit/mL (3 mL) subcutaneous pen 3. Chronic obstructive lung disease 4. Electrolyte imbalance electrolyte imbalance: care instructions CMP, serum or plasma CBC w/ auto diff Discussion Note: None recorded. Plan of Care Reminders Provider Appointments Return to on or around Marcos Cage MD Office 05/20/2019 Lab CMP, Serum 04/19/2019 [place] or Plasma [facility] (Labs) (Xray) CBC W/ 04/19/2019 [place] Auto Diff [facility] (Labs) (Xray) Amylase + 04/19/2019 [place] Lipase, Serum [facility] (Labs) (Xray) Referral None recorded. Procedures None recorded. Surgeries None recorded. Imaging None recorded. Medications Name Start Date albuterol sulfate HFA 90 mcg/actuation aerosol inhaler Inhale 2 puffs every 4 hours by inhalation route. Alphagan P 0.1 % eye drops amlodipine 5 mg tablet Take 1 tablet every day by oral route. Aspir-81 atorvastatin 40 mg tablet TAKE 1 TABLET DAILY BD Ultra-Fine Aleta Pen Needle 32 gauge x 5/32" carvedilol 25 mg tablet Take 2 tablets every day by oral route. clobetasol 0.05 % lotion APPLY A THIN LAYER TO THE AFFECTED AREA(S) BY TOPICAL ROUTE 2 TIMES PER DAY Creon 36,000 unit-114,000 unit-180,000 unit capsule,delayed release erythromycin 250 mg tablet Humalog KwikPen (U-100) Insulin 100 unit/mL subcutaneous Inject 10 units 3 times a day by subcutaneous route. Humulin N NPH Insulin KwikPen Humulin N NPH U-100 Insulin KwikPen 100 unit/mL (3 mL) subcutaneous Inject 28 units every day by subcutaneous route in the morning. hydrocodone 10 mg-acetaminophen 325 mg tablet Imodium A-D Lantus Solostar U-100 Insulin 100 unit/mL (3 mL) subcutaneous pen Inject 15 units every day by subcutaneous route as directed for 99 days. use for diabetes Lantus U-100 Insulin 100 unit/mL subcutaneous solution losartan 100 mg tablet Take 1 tablet every day by oral route. meloxicam 15 mg tablet Take 1 tablet every day by oral route. methocarbamol 500 mg tablet ondansetron HCl 4 mg tablet pantoprazole 40 mg tablet,delayed release Suprep Bowel Prep Kit 17.5 gram-3.13 gram-1.6 gram oral solution Synthroid 100 mcg tablet TAKE 1 TABLET DAILY tramadol 50 mg tablet Take 1 tablet twice a day by oral route. Travatan Z 0.004 % eye drops Vitamin D3 Medications Administered None recorded. Vitals Height Weight BMI Blood Pressure 62 in 105 lbs 19.2 kg/m2 125/72 mm[Hg] Lab Results None recorded. Allergies Code Code System Name Reaction Severity [...] Pancreatitis Active 07/10/2018 Bacterial Pneumonia Active 10/31/2018 Malignant Tumor of Pancreas Active 04/19/2019 Electrolyte Imbalance Active 04/19/2019 Procedures Date Name Performed by Tonsillectomy Information not available Vaccine List Vaccine Type influenza, high dose seasonal 06/13/20180.5 mL Social History Tobacco Smoking Status Former Smoker Past Encounters 04/19/2019 Malignant Tumor of Pancreas; Type II Diabetes Mellitus Uncontrolled; Chronic Obstructive Lung Disease; Electrolyte Imbalance Marcos Cage MD: [address] [place] [address], [address], [place] [address], Ph. History of Present Illness Note: CC pancreatic cancer<div>hpi recently had Whipple procedure</ div><div>CC DM</div><div>hpi on insulin now</div>< div>CC electrolyte imbalance</div><div>hpi had issues in the hospital</div>Review of Systems: ROS as noted in the HPI Review of Systems None recorded. Physical Exam Notes: vs reviewed<div>gen mild distress</div><div>too thin but looks good</div><div>heart wnl</div><div>wheezing in the right chest</div>
[2019-05-05 21:13] LABS: Absolute Lymphocytes (CBC) 1.9 K/uL (0.7-4.9); Basophils % 0.7 % (0-1.3); Hematocrit 36.6 % (36.0-45.0); Lymphocytes % 14.2 % (15.3-44.8); MPV 8.1 fL (7.6-11.3); RBC Red Blood Cell Count 3.93 M/uL (3.86-4.86)
[2019-05-05 21:31] LABS: Albumin 3.3 g/dL (3.4-5.0); Bilirubin Direct 0.2 mg/dL (0-0.2); Bilirubin Total 0.5 mg/dL (0.2-1.0); Protein, Total 6.6 g/dL (6.4-8.2)
[2019-05-05] MEDS ORDERED: FENTANYL CITR 100 MCG/2 ML ONE (21:46)
[2019-05-05] MEDS ORDERED: NA CHLORIDE 0.9% 1,000 ML ONE (21:46)
--- NOTE | 2019-05-06 01:24 | ER ---
Nurse's Notes [facility] Name: Kelly Roberts Age: 73 yrs Sex: Female : 1945 Arrival Date: 05/05/2019 Time: 19:38 Bed 16 Private MD: out of town, doctor Diagnosis: Dehydration;Anorexia;Secondary malignant neoplasm of liver and intrahepatic bile duct Presentation: 05/05 20:21 Presenting complaint: Patient states: Reports she had a Whipple procedure on Apr 02, ea has been having decreased appetite, low grade fever and pain that started a week ago. reports pt has ran out of pain meds and hasn't been able to control her pain. Transition of care: patient was not received from another setting of care. Onset of symptoms Onset of symptoms was April 28, 2019. Risk Assessment: Do you want to hurt yourself or someone else? Patient reports no desire to harm self or others. Initial Sepsis Screen: Does the patient meet any 2 criteria? No. Patient's initial sepsis screen is negative. Does the patient have a suspected source of infection? No. Patient's initial sepsis screen is negative. Care prior to arrival: None. 20:21 Method Of Arrival: Wheelchair ea 20:21 Acuity: JACKY 3 ea Triage Assessment: 20:25 General: Appears uncomfortable, Behavior is appropriate for age. Neuro: Level of ea Consciousness is awake, alert, obeys commands, Oriented to person, place, time, situation, Moves all extremities. Speech is normal, Facial symmetry appears normal. Cardiovascular: Patient's skin is warm and dry. Respiratory: Airway is patent Respiratory effort is even, unlabored, Respiratory pattern is regular, symmetrical. Derm: Skin is dry, Skin is pale, Skin temperature is warm. 20:25 Pain: Complains of pain in abdomen Pain currently is 9 out of 10 on a pain scale. ea Historical: - Allergies: 20:27 No Known Allergies; ea - Home Meds: 20:27 carvedilol oral oral [Active]; losartan oral oral [Active]; amlodipine oral [Active]; ea atorvastatin oral oral [Active]; multivitamin with minerals oral oral [Active]; levothyroxine oral [Active]; - PMHx: 20:27 Diabetes - IDDM; Hyperlipidemia; Hypertension; ea - PSHx: 20:27 whipple procedure; ea - Immunization history:: Adult Immunizations up to date. - Social history:: Smoking status: Patient/guardian denies using tobacco. - Ebola Screening: : No symptoms or risks identified at this time. Screenin:44 Abuse screen: Denies threats or abuse. Nutritional screening: No deficits noted. ea Tuberculosis screening: No symptoms or risk factors identified. Fall Risk None identified. Assessment: 20:25 Reassessment: see triage. ea 22:00 Reassessment: Patient and/or family updated on plan of care and expected duration. Pain ea level reassessed. Patient is alert, oriented x 3, equal unlabored respirations, skin warm/dry/pink. 23:43 Reassessment: Patient and/or family updated on plan of care and expected duration. Pain ea level reassessed. Patient is alert, oriented x 3, equal unlabored respirations, skin warm/dry/pink. 05/06 00:58 Reassessment: Patient and/or family updated on plan of care and expected duration. Pain rr5 level reassessed. Pt resting with eyes closed, respirations even and unlabored, chest expansions even and symmetrical. No s/s of pain or discomfort noted at this time. 01:45 Reassessment: Patient and/or family updated on plan of care and expected duration. Pain ea level reassessed. Patient is alert, oriented x 3, equal unlabored respirations, skin warm/dry/pink. Provider at bedside updating pt on plan of care. 02:00 Reassessment: Report called to receiving nurse Chadd DICKERSON at [facility]. Awaiting on ea EMS for transport. 02:36 Reassessment: Patient and/or family updated on plan of care and expected duration. Pain ea level reassessed. Patient is alert, oriented x 3, equal unlabored respirations, skin warm/dry/pink. Report given to [facility]. Pt left ED via stretcher per EMS. Pt tolerating well. Vital Signs: 05/05 20:24 BP 165 / 80; Pulse 80; Resp 18; Temp 98.1(O); Pulse Ox 100% on R/A; Weight 44.45 kg; ea Height 5 ft. 3 in. (160.02 cm); Pain 9/10; 22:21 BP 165 / 83 RA (auto/reg); Pulse 83; Resp 18; Pulse Ox 99% on R/A; jp3 23:30 BP 141 / 86; Pulse 81; Resp 18; Pulse Ox 97% on R/A; ea 05/06 00:00 BP 147 / 68; Pulse 84; Resp 18; Temp 98(TE); Pulse Ox 97% on R/A; ea 01:00 BP 140 / 71; Pulse 81; Resp 18; Temp 97.8; Pulse Ox 96% on R/A; ea 02:00 BP 161 / 80; Pulse 81; Resp 18; Pulse Ox 97% ; ea 05/05 20:24 Body Mass Index 17.36 (44.45 kg, 160.02 cm) ea ED Course: 05/05 19:38 Patient arrived in ED. mr 19:38 out of town, doctor is Private Physician. mr 20:01 Sharonda Eden, RN is Primary Nurse. ea 20:24 Triage completed. ea 20:25 Patient has correct armband on for positive identification. Bed in low position. Call ea light in reach. Side rails up X2. 20:44 Arm band placed on right wrist. Patient placed in an exam room, on a stretcher, on ea pulse oximetry. 21:14 Juan Alberto Sheridan MD is Attending Physician. gs 21:15 Inserted saline lock: 20 gauge in left forearm, using aseptic technique. ea 21:55 First set of blood cultures drawn by me. jp3 22:20 CT Abd/Pelvis - IV Contrast Only In Process Unspecified. EDMS 22:35 Second set of blood cultures drawn by me. jp3 05/06 02:04 No provider procedures requiring assistance completed. Patient transferred, IV remains ea in place. Administered Medications: 05/05 21:57 Drug: fentaNYL (PF) 50 mcg {Note: RASS 0.} Route: IVP; Site: left forearm; ea 22:30 Follow up: Response: No adverse reaction; Pain is decreased ea 22:30 Drug: NS 0.9% 1000 ml Route: IV; Rate: 1 bolus; Site: left forearm; ea 23:00 Follow up: Response: No adverse reaction; IV Status: Completed infusion; IV Intake: ea 1000ml 05/06 01:46 Drug: NS 0.9% 1000 ml Route: IV; Rate: 125 ml/hr; Site: left forearm; ea 02:05 Follow up: IV Status: Infusion continued upon transfer ea Point of Care Testing: Blood Glucose: 05/05 21:13 Blood Glucose: 138 mg/dL; ea Ranges: Intake: 23:00 IV: 1000ml; Total: 1000ml. ea Outcome: 05/06 01:23 ER care complete, transfer ordered by . 01:40 Instructed on the need for transfer. ea 02:37 Transferred by ground EMS to [facility], Transfer form completed. ea 02:37 Condition: stable 02:37 Patient left the ED. ea Signatures: Dispatcher [employer] GRACIE River Julia KareySharonda, RN RN Juan Alberto Morrissey MD MD gs Pisarski, Jacob jp3 Evan Mallory, RN RN rr5 Corrections: (The following items were deleted from the chart) 02: 02:00 Reassessment: Report called to receiving nurse Chadd DICKERSON at [facility]. Awaiting ea on transportation ea
--- NOTE | 2019-05-06 01:25 | EDPHYS ---
Physician Documentation [facility] Name: Kelly Roberts Age: 73 yrs Sex: Female : 1945 Arrival Date: 05/05/2019 Time: 19:38 Bed 16 Private MD: out of town, doctor ED Physician Juan Alberto Sheridan HPI: 05/06 01:37 This 73 yrs old Female presents to ER via Wheelchair with complaints of gs Fever, Weakness, Nausea. 01:37 The patient presents with abdominal pain in the upper abdomen. Onset: The gs symptoms/episode began/occurred gradually, 1 week(s) ago. The symptoms do not radiate. Associated signs and symptoms: Pertinent positives: nausea and vomiting, anorexia. The symptoms are described as crampy, sharp. Modifying factors: The symptoms are alleviated by nothing, the symptoms are aggravated by nothing. Severity of pain: At its worst the pain was severe in the emergency department the pain is unchanged. The patient has not experienced similar symptoms in the past. The patient has been recently seen by a physician: surgery one month ago. Historical: - Allergies: 05/05 20:27 No Known Allergies; ea - Home Meds: 20:27 carvedilol oral oral [Active]; losartan oral oral [Active]; amlodipine oral [Active]; ea atorvastatin oral oral [Active]; multivitamin with minerals oral oral [Active]; levothyroxine oral [Active]; - PMHx: 20:27 Diabetes - IDDM; Hyperlipidemia; Hypertension; ea - PSHx: 20:27 whipple procedure; ea - Immunization history:: Adult Immunizations up to date. - Social history:: Smoking status: Patient/guardian denies using tobacco. - Ebola Screening: : No symptoms or risks identified at this time. ROS: 05/06 01:37 All other systems are negative. gs Exam: 01:37 Head/Face: Normocephalic, atraumatic. Eyes: Pupils equal round and reactive to light, gs extra-ocular motions intact. Lids and lashes normal. Conjunctiva and sclera are non-icteric and not injected. Cornea within normal limits. Periorbital areas with no swelling, redness, or edema. ENT: Nares patent. No nasal discharge, no septal abnormalities noted. Tympanic membranes are normal and external auditory canals are clear. Oropharynx with no redness, swelling, or masses, exudates, or evidence of obstruction, uvula midline. Mucous membranes moist. Neck: Trachea midline, no thyromegaly or masses palpated, and no cervical lymphadenopathy. Supple, full range of motion without nuchal rigidity, or vertebral point tenderness. No Meningismus. Chest/axilla: Normal chest wall appearance and motion. Nontender with no deformity. No lesions are appreciated. Cardiovascular: Regular rate and rhythm with a normal S1 and S2. No gallops, murmurs, or rubs. Normal PMI, no JVD. No pulse deficits. Respiratory: Lungs have equal breath sounds bilaterally, clear to auscultation and percussion. No rales, rhonchi or wheezes noted. No increased work of breathing, no retractions or nasal flaring. Back: No spinal tenderness. No costovertebral tenderness. Full range of motion. Skin: Warm, dry with normal turgor. Normal color with no rashes, no lesions, and no evidence of cellulitis. MS/ Extremity: Pulses equal, no cyanosis. Neurovascular intact. Full, normal range of motion. Neuro: Awake and alert, GCS 15, oriented to person, place, time, and situation. Cranial nerves II-XII grossly intact. Motor strength 5/5 in all extremities. Sensory grossly intact. Cerebellar exam normal. Normal gait. 01:37 Constitutional: The patient appears alert, awake, uncomfortable. 01:37 Abdomen/GI: Inspection: incision healing steri strips in place, Palpation: moderate abdominal tenderness, in the right upper quadrant and left upper quadrant, rebound tenderness, is not appreciated. Vital Signs: 05/05 20:24 BP 165 / 80; Pulse 80; Resp 18; Temp 98.1(O); Pulse Ox 100% on R/A; Weight 44.45 kg; ea Height 5 ft. 3 in. (160.02 cm); Pain 9/10; 22:21 BP 165 / 83 RA (auto/reg); Pulse 83; Resp 18; Pulse Ox 99% on R/A; jp3 23:30 BP 141 / 86; Pulse 81; Resp 18; Pulse Ox 97% on R/A; ea 05/06 00:00 BP 147 / 68; Pulse 84; Resp 18; Temp 98(TE); Pulse Ox 97% on R/A; ea 01:00 BP 140 / 71; Pulse 81; Resp 18; Temp 97.8; Pulse Ox 96% on R/A; ea 02:00 BP 161 / 80; Pulse 81; Resp 18; Pulse Ox 97% ; ea 05/05 20:24 Body Mass Index 17.36 (44.45 kg, 160.02 cm) ea MDM: 05/05 21:35 Patient medically screened. 05/06 01:37 Differential diagnosis: bowel obstruction, pancreatitis, Perf. Duodenal Ulcer, abscess. Data reviewed: vital signs, nurses notes, lab test result(s), radiologic studies. Counseling: I had a detailed discussion with the patient and/or guardian regarding: the historical points, exam findings, and any diagnostic results supporting the discharge/admit diagnosis. Response to treatment: the patient's symptoms have mildly improved after treatment, and as a result, I will transfer. 05/05 20:53 Order name: Basic Metabolic Panel; Complete Time: 21:35 05/05 20:53 Order name: CBC with Diff; Complete Time: 21:35 ea 05/05 20:53 Order name: Hepatic Function; Complete Time: 21:35 ea 05/05 20:53 Order name: Lipase; Complete Time: 21:35 05/05 21:18 Order name: Glucose, Ancillary Testing; Complete Time: 21:35 EDMS 05/05 20:53 Order name: IV Saline Lock; Complete Time: 21:35 ea 05/05 21:38 Order name: CT Abd/Pelvis - IV Contrast Only 05/05 21:38 Order name: Blood Culture* 05/05 21:38 Order name: Lactate; Complete Time: 22:56 05/05 21:38 Order name: Procalcitonin; Complete Time: 22:56 05/05 20:53 Order name: Labs collected and sent; Complete Time: 21:35 Administered Medications: 05/05 21:57 Drug: fentaNYL (PF) 50 mcg {Note: RASS 0.} Route: IVP; Site: left forearm; ea 22:30 Follow up: Response: No adverse reaction; Pain is decreased ea 22:30 Drug: NS 0.9% 1000 ml Route: IV; Rate: 1 bolus; Site: left forearm; ea 23:00 Follow up: Response: No adverse reaction; IV Status: Completed infusion; IV Intake: ea 1000ml 05/06 01:46 Drug: NS 0.9% 1000 ml Route: IV; Rate: 125 ml/hr; Site: left forearm; ea 02:05 Follow up: IV Status: Infusion continued upon transfer ea Point of Care Testing: Blood Glucose: 05/05 21:13 Blood Glucose: 138 mg/dL; ea Ranges: Critical Glucose Levels:Adult <50 mg/dl or >400 mg/dl <40 mg/dl or >180 mg/dl Disposition: 05/06/19 01:23 Transfer ordered to [facility]. Diagnosis are Dehydration, Anorexia, Secondary malignant neoplasm of liver and intrahepatic bile duct. - Reason for transfer: Higher level of care. - Accepting physician is TIERA. - Condition is Stable. - Problem is new. - Symptoms are unchanged. Signatures: Dispatcher [employer] Sharonda Castellano RN RN ea Starr, Gregory, MD MD gs Corrections: (The following items were deleted from the chart) 22:22 20:53 Creatinine for Radiology+C.LAB.BRZ ordered. [facility] 05/06 02:37 01:23 05/06/2019 01:23 Transfer ordered to [facility]. Diagnosis is ea Dehydration; Anorexia; Secondary malignant neoplasm of liver and intrahepatic bile duct. Reason for transfer: Higher level of care. Accepting physician is TIERA. Condition is Stable. Problem is new. Symptoms are unchanged. gs
[2019-05-06] MEDS ORDERED: NA CHLORIDE 0.9% 1,000 ML ONE (01:38)
[2019-05-06 13:22] VITALS: TEMP 97.8
[2019-05-06 13:23] VITALS: BP 161/80; O2SAT 97
--- NOTE | 2019-05-07 12:54 | RAD REPORT ---
EXAM DESCRIPTION: Abdomen Pelvis W Contrast CLINICAL HISTORY: ABD PAIN COMPARISON: None. TECHNIQUE: CT ABDOMEN PELVIS WITH IV CONTRAST on 05/05/2019 9:38 PM CDT This exam was performed according to our departmental dose-optimization program, which includes autom ated exposure control, adjustment of the mA and/or kV according to patient size and/or use of iterati ve reconstruction technique. FINDINGS: There is a small calcified left lower lobe granuloma. Abdomen: There are approximately 10 mm lesions throughout the liver measuring up to 1.1 cm. These are not simple cyst. There is no biliary dilatation. Cholecystectomy was performed. Spleen contains mult iple calcified granulomas. Pancreas is densely and chronically calcified. Pancreatic head is poorly s een. The adrenal glands and kidneys are unremarkable. Abdominal aorta is densely calcified without aneurysm. There is no free air. There is no retroperiton eal adenopathy. Pelvis: There are postoperative changes of the proximal transverse colon. Urinary bladder is unremark able. There is trace amount of free pelvic fluid. Uterus is normal in size. Skeleton: There are no acute osseous findings. No suspicious bony lesions. IMPRESSION: Multiple low-density hepatic lesions, worrisome for metastatic disease. Poor visualization of the pancreatic head. No definite acute inflammatory process otherwise. Electronically signed by: Bryce Whitten MD 05/05/2019 10:56 PM CDT Due to temporary technical issues with the PACS/Fluency reporting system, reports are being signed by the in house radiologist as a courtesy to ensure prompt reporting. The interpreting radiologist is f ully responsible for the content of the report.
== END 2019-05-06 02:37 | disposition short-term general hospital (02) ==
LOC: ER 19:34
DX: C78.7 Secondary malignant neoplasm of liver and intrahepatic bile duct (principal); E86.0 Dehydration; R63.0 Anorexia; Z98.890 Other specified postprocedural states; I10 Essential (primary) hypertension; E78.5 Hyperlipidemia, unspecified; E11.9 Type 2 diabetes mellitus without complications
CPT/HCPCS: 96361; 87040 ×2; 85025; 80048; 36415; 82962; 80076; 83605; 83690; 84145; 74177; 96374; 99285; Q9967; J3010; J7030 ×2